=== PATIENT | female | born 1995 | race Caucasian/White ===

== ENCOUNTER 2022-05-24 15:49 | Outpatient (CLI) | payer OTHER, BC, SELFPAY ==
--- NOTE | 2022-05-24 16:00 | CRLHL7_ITS ---
For Patients: As a result of the Century Cures Act, medical imaging exams and procedure reports are released immediately into your electronic medical record. You may view this report before your referring provider. If you have questions, please contact your health care provider. INDICATION: Evaluate anatomy. COMPARISON: 03.31.22, 02.22.22 TECHNIQUE: Real time conley scale imaging of the fetus was performed as well as color Doppler analysis of the umbilical vessels. FINDINGS: Sonographic imaging demonstrates a single living intrauterine gestation. Fetus demonstrates a regular cardiac rate of 150 beats per minute. Fetus has a vertex position. The placenta lies anterior without evidence of placenta previa. Amniotic fluid volume appears normal. Single deepest vertical pocket: 4.9 cm. The cervix is closed and measures 4.1 cm in length. The composite ultrasound gestational age is calculated at 20 weeks 6 days with an estimated sonographic due date of 10/05/2022. The estimated weight is 366 grams which lies at the 56th %. The following biometric measurements were obtained: Biparietal diameter: 5.0 cm/21 weeks 0 days 73rd% Head circumference: 18.5 cm/20 weeks 6 days 60th% Abdominal circumference: 15.3 cm/20 weeks 3 days 46th% Femur length: 3.4 cm/20 weeks 5 days 51st% The HC/AC ratio measures: 1.21 range (1.06-1.25) On anatomic survey, there is a normal appearance of the cerebral ventricles, cavum septi pellucidi, cisterna magna and cerebellum. The nose, lips, and facial profile appear normal. The cervical, thoracic and lumbar spine are well visualized and appear normal. There is a normal four-chamber heart view and the left and right ventricular outflow tracts appear normal. The diaphragm and stomach appear normal. The kidneys and bladder also appear normal. There is a normal three-vessel cord and cord insertion site. The four extremities appear normal. IMPRESSION: Normal OB ultrasound exam with concordance of clinical and sonographic dating. No intrinsic abnormalities noted on anatomic survey. Dictated by Adarsh Arrieta MD @ 05/25/2022 9:47:10 AM ----- ADDENDUM ----- The placenta appears normal. Dictated by Adarsh Arrieta MD @ Jul 01 2022 11:39AM Signed by:?Adarsh Arrieta MD @05/25/2022 9:47:10 AM (Electronic Signature)
== END 2022-05-24 15:50 | disposition home or self-care (01) ==
LOC: US 15:51
PROVIDERS: Visit Provider Physician Assistant
DX: Z34.92 Encounter for supervision of normal pregnancy, unspecified, second trimester (principal); Z3A.20 20 weeks gestation of pregnancy
CPT/HCPCS: 76805

== ENCOUNTER 2022-07-19 17:49 | Outpatient (CLI) | payer OTHER, BC, SELFPAY ==
[2022-07-21 19:15] LABS: Rapid Plasma Reagin (RPR) Non Reactive (Non Reactive)
== END 2022-07-19 17:50 | disposition home or self-care (01) ==
LOC: NFLDREF 18:27
PROVIDERS: Visit Provider Physician Assistant
DX: Z34.93 Encounter for supervision of normal pregnancy, unspecified, third trimester (principal); Z3A.28 28 weeks gestation of pregnancy
CPT/HCPCS: 86592

== ENCOUNTER 2022-07-22 19:07 | Outpatient (CLI) | payer OTHER, BC, SELFPAY ==
[2022-07-22 08:20] LABS: Glucose Fasting Check 83 mg/dl (60-115)
[2022-07-22 12:03] LABS: Glucose 1 Hour Gest 227 mg/dl (70-180)
[2022-07-22 12:04] LABS: Glucose GTT-Gestational 3 Hr 102 mg/dl (70-140)
== END 2022-07-22 19:08 | disposition home or self-care (01) ==
PROVIDERS: Visit Provider Physician Assistant
DX: O24.419 Gestational diabetes mellitus in pregnancy, unspecified control (principal)
CPT/HCPCS: 82951; 82952

== ENCOUNTER 2022-08-16 16:28 | Outpatient (CLI) | payer OTHER, SELFPAY ==
--- NOTE | 2022-08-16 18:00 | CRLHL7_ITS ---
For Patients: As a result of the Century Cures Act, medical imaging exams and procedure reports are released immediately into your electronic medical record. You may view this report before your referring provider. If you have questions, please contact your health care provider. INDICATION: Third trimester scan, evaluate growth. Gestational diabetes COMPARISON: 05/24/22 TECHNIQUE: Real time conley scale imaging of the fetus was performed. FINDINGS: Sonographic imaging demonstrates a single living intrauterine gestation. Fetus demonstrates a regular cardiac rate of 157 beats per minute. Fetus has a vertex position. The placenta lies anteriorly. Amniotic fluid volume appears normal and there is a single deepest vertical pocket: 6.6 cm. The estimated weight is 2137gm which lies at the 64th %. On the prior OB ultrasound exam dated 05/24/22 the estimated weight was at the 56th%. BPD 96th percentile. HC 90th percentile. AC 66th percentile. FL 31st percentile. The HC/AC ratio measures 1.10 range (0.95-1.11). IMPRESSION: Sonographic gestational age 34 weeks 0 days and sonographic due date of 09/27/2022. Sonographic age 11 days ahead of the clinical age. Estimated weight 64th percentile. Abdominal circumference 90th percentile. Dictated by Adarsh Arrieta MD @ 08/17/2022 9:28:12 AM (Electronically Signed) ----- ADDENDUM ----- Correction: : The abdominal circumference measurement is 66th percentile. Dictated by Adarsh Arrieta MD @ Aug 17 2022 11:46AM Signed by:?Adarsh Arrieta MD @08/17/2022 9:28:12 AM (Electronic Signature)
== END 2022-08-16 16:29 | disposition home or self-care (01) ==
LOC: US 16:28
PROVIDERS: Visit Provider Registered Nurse
DX: O24.419 Gestational diabetes mellitus in pregnancy, unspecified control (principal); Z3A.34 34 weeks gestation of pregnancy
CPT/HCPCS: 76816

== ENCOUNTER 2022-09-16 14:46 | Outpatient (CLI) | payer OTHER, SELFPAY ==
[2022-09-17 14:54] LABS: Strep B DNA Probe NEGATIVE (Negative)
[2022-09-17 16:01] LABS: Strep B Pen/Amox Allergy No
== END 2022-09-16 14:47 | disposition home or self-care (01) ==
LOC: NFLDREF 14:47
PROVIDERS: Visit Provider Obstetrics & Gynecology
DX: Z34.93 Encounter for supervision of normal pregnancy, unspecified, third trimester (principal); Z3A.36 36 weeks gestation of pregnancy
CPT/HCPCS: 76816; 87081; 87653

== ENCOUNTER 2022-10-04 15:46 | Outpatient (CLI) | payer OTHER, SELFPAY ==
--- NOTE | 2022-10-04 16:00 | CRLHL7_ITS ---
For Patients: As a result of the Century Cures Act, medical imaging exams and procedure reports are released immediately into your electronic medical record. You may view this report before your referring provider. If you have questions, please contact your health care provider. INDICATION: Check KATHERINE. COMPARISON: OB ultrasound 09/16/2022. TECHNIQUE: Ultrasound OB pelvis limited with real time conley scale imaging and color Doppler analysis. FINDINGS: Sonographic imaging demonstrates a single living intrauterine gestation. The fetus has a regular cardiac rate of 137 beats per minute. The fetus has a cephalic orientation. The placenta lies anteriorly without evidence of placenta previa. Amniotic fluid volume appears normal with single deepest pocket measuring 7.0 cm and the amniotic fluid index measuring 18.4 cm. IMPRESSION: 1. Single living intrauterine gestation in cephalic position with heart rate 137 beats per minute. 2. KATHERINE within normal limits measuring 18.4 cm. Dictated by Evelyne Freeman MD @ 10/04/2022 9:02:33 PM (Electronically Signed)
== END 2022-10-04 15:47 | disposition home or self-care (01) ==
LOC: US 15:47
PROVIDERS: Visit Provider Obstetrics & Gynecology
DX: Z34.93 Encounter for supervision of normal pregnancy, unspecified, third trimester (principal); Z3A.39 39 weeks gestation of pregnancy
CPT/HCPCS: 76815

== ENCOUNTER 2022-10-10 11:06 | Outpatient (CLI) | payer OTHER, SELFPAY ==
[2022-10-10] VITALS (7 sets, daily range): BP systolic 113–135; BP diastolic 74–89; PULSE 90–106
[2022-10-10 11:55] LABS: Appearance Urine Clear (Clear); Bilirubin Urine Negative (Negative); Blood Urine Negative (Negative); Color Urine Yellow (Yellow); Glucose Urine Negative (Negative); Ketones Urine 1+ (Negative); Leukocyte Esterase Urine Trace (Negative); Nitrite Urine Negative (Negative); Protein Urine Negative (Negative); Specific Gravity Urine 1.015 (1.000-1.030); Urobilinogen Urine 0.2 (0.2-1.0)
[2022-10-10 12:03] LABS: Squamous Epithelial Cell Urine Few (None-Few); WBC Urine 0-2 (0-5)
[2022-10-10 12:04] LABS: Bacteria Urine Few
[2022-10-10 12:15] LABS: Hematocrit 36.4 % (33.0-51.0); Hemoglobin* 12.7 gm/dL (12.0-16.0); Mean Corpuscular HGB Conc 35 gm/dL (32-36); Mean Corpuscular Hemoglobin 31 pg (26-34); Mean Corpuscular Volume 88 fL (80-100); Platelet Count* 236 K/uL (140-440); Red Blood Count 4.14 m/uL (4.00-5.20); White Blood Count* 7.94 K/uL (4.50-11.00)
[2022-10-10 12:18] LABS: Slide Review Reflex No
[2022-10-10 12:34] LABS: Alanine Aminotransferase* 15 U/L (4-35); Aspartate Amino Transferase* 36 U/L (12-35); Blood Urea Nitrogen* 11 mg/dL (5-24); Creatinine* 0.5 mg/dL (0.5-1.5); Estimated Glomerular Filt Rate 133 ml/min
[2022-10-10 12:35] LABS: Total Protein Urine 9 mg/dL
--- NOTE | 2022-10-10 14:21 | PC.OBNST ---
NST Note NST Note Start: 10/10/22 11:10 Freq: ONCE Status: Active Protocol: Document 10/10/22 14:18 ELVIS (Rec: 10/10/22 14:19 JRDaisy [id number]) NST Note 1 Para (# of births) 0 EDC 10/08/22 Gestational Age In Weeks & Days 40 Weeks & 2 Days High Risk Factors Diabetes - Gestational Diet Controlled Patient Presented with Complaint(s) of Other Other Complaints Pt here for BP evaluation and labs. Reactive Yes Appropriate for Gestational Age Yes RN Marsha Flores RN Date 10/10/22 Reactive Yes Appropriate for Gestational Age Yes TAMEKA Rossi RN Date 10/10/22 OB NST charge Yes Complete NST Note via Write Note Yes The provider's electronic signature indicates the NST is reactive/appropriate for gestational age. *Note to provider: If an addendum is required, open the patient's chart and click on the note under the Nurse/Allied Health tab.
== END 2022-10-10 13:18 | disposition home or self-care (01) ==
LOC: OB OUT 11:08 → OB 11:08
PROVIDERS: Obstetrics & Gynecology; Visit Provider Obstetrics & Gynecology
DX: O24.419 Gestational diabetes mellitus in pregnancy, unspecified control (principal); Z3A.40 40 weeks gestation of pregnancy
CPT/HCPCS: 36415; 59025; 81003; 81015; 82565; 82570; 84156; 84450; 84460; 84520; 85027; 87086; 87186; 99213

== ENCOUNTER 2022-10-11 09:29 | Outpatient (CLI) | payer OTHER, SELFPAY ==
[2022-10-11 09:21] LABS: Alanine Aminotransferase* 14 U/L (4-35); Aspartate Amino Transferase* 17 U/L (12-35); Blood Urea Nitrogen* 12 mg/dL (5-24); Creatinine* 0.6 mg/dL (0.5-1.5); Estimated Glomerular Filt Rate 127 ml/min; Total Protein Urine 12 mg/dL
[2022-10-11 09:22] LABS: Creatinine Urine 95.2 mg/dL
== END 2022-10-11 09:30 | disposition home or self-care (01) ==
LOC: NFLDLAB 10-14 09:30
PROVIDERS: Obstetrics & Gynecology; Visit Provider Obstetrics & Gynecology
DX: Z34.93 Encounter for supervision of normal pregnancy, unspecified, third trimester (principal); Z3A.40 40 weeks gestation of pregnancy
CPT/HCPCS: 82565; 82570; 84156; 84450; 84460; 84520

== ENCOUNTER 2022-10-13 16:31 | Inpatient (IN) | payer OTHER, SELFPAY ==
[2022-10-13 16:35] VITALS: BP 122/81; PULSE 86; TEMP 36.9
[2022-10-13 16:45] VITALS: BMI 34.4
--- NOTE | 2022-10-13 16:59 | W.PM.LDBA ---
Subjective History of Present Illness Time Seen by Provider: 17:00 Date Seen: 10/13/22 Narrative: Patient is being admitted to Labor and Delivery for cervical ripening and induction of labor secondary to GDMA1. She is a 27 year old at weeks gestation. Her full history and physical was dictated by Dr. Childers on 10/04/2022. Please see this for details. OB PROBLEM LIST: Blood type: O positive 1. 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 COVID vaccinated +booster 4. Possible placental accessory lobe Normal placenta on FAS, no accessory lobe. 5. 1 hour GTT: 182 Discussed making the diagnosis now, patient preferred to do a 3 hour gtt 3 hour gtt: 89, 227H, 225H, 102 GESTATIONAL DIABETES, diet controlled Dietitian referral placed 07/22/2022:completed 08/02/22: Blood sugars all normal Ultrasound 32 and 36 week -32 week: EFW 64%. BPD 96%, HC 90%, AC 66%, FL 30.5% 36 week 09/16/22: New onset R renal pelviectasis, 8 mm. ? L renal atrophy. [facility] of [facility] MFM referral. Vtx. SDP 6.5. EFW: 3213 g, 7 lb 1 oz, 72%. BPD 96%, HC 73%, AC 57%, FL 75%. 09/19/2022 U of [place] MFM: normal kidneys bilaterally, no pelviectesis. EFW: 3019g, #11oz 43%. OB - H&P: Exam Physical Exam: Vital signs: Temp Pulse BP 98.4 F 86 122/81 10/13/22 16:35 10/13/22 16:35 10/13/22 16:35 Constitutional: Constitutional: no acute distress Routine HEENT Exam: Head: Present normal inspection Eye: Present normal appearance Routine Abdominal Exam: Comments: gravid, fundal height consistent with dates, vertex presentation by Donato'michelle Detailed Labor and Delivery Exam: Patient Gravid: yes Dilation (cm): 1 Effacement (%): 50 Cervix position: posterior Consistency: medium Contraction frequency (min): 10 Contraction intensity: Mild Fetus (Single): Station: -3 (ballotable) Heart Rate Baseline: 130 Monitor Accelerations: Present Monitor Decelerations: None Retirement Variability: Moderate (6-25) Routine Extremities Exam: Extremities: Absent pedal edema Routine Back/Spine/Pelvis Exam: Back/Spine: full ROM Routine Skin Exam: Present intact Routine Neurological Exam: Present alert and oriented X3 Routine Psychiatric Exam: Present normal affect OB - Problem Based A/P Additional Plan (1) : Status: Acute (2) Gestational diabetes mellitus (GDM): Status: Acute Delivery/Labor/Induction Plan Plan: induction Induction method: per misoprostol protocol (vaginal for cervical ripening)
[2022-10-13] MEDS: miSOPROStoL 25 MCG/0.25 TABLET VAGINAL ×2 (17:33→21:44)
[2022-10-13 17:51] LABS: SARS PCR* Negative SARS-CoV-2 (Negative)
[2022-10-13 18:43] LABS: Basophils Absolute Auto 0.03 K/uL (0.00-0.30); Basophils Percent Auto 0.3 % (0.0-3.0); Eosinophils Percent Auto 1.2 % (0.0-7.0); Hematocrit 37.6 % (33.0-51.0); Immature Granulocytes Abs Auto 0.01 K/uL (0.00-0.30); Immature Granulocytes Pct Auto 0.1 %; Lymphocytes Absolute Auto 2.04 K/uL (0.90-2.90); Lymphocytes Percent Auto 23.6 % (20-44); Mean Corpuscular HGB Conc 35 gm/dL (32-36); Mean Corpuscular Hemoglobin 31 pg (26-34); Mean Corpuscular Volume 89 fL (80-100); Monocytes Percent Auto 5.9 % (0.0-11.0); Neutrophils Absolute Auto 5.96 K/uL (1.7-7.0); Neutrophils Percent Auto 68.9 % (42.0-72.0); Platelet Count* 231 K/uL (140-440); RDW Coefficient of Variation % 12.6 % (11.5-15.5); Red Blood Count 4.25 m/uL (4.00-5.20); White Blood Count* 8.65 K/uL (4.50-11.00)
[2022-10-13 18:57] LABS: Slide Review Reflex No
[2022-10-13 21:25] VITALS: BP 126/88; PULSE 77
[2022-10-13 21:30] VITALS: RESP 16; TEMP 36.4
[2022-10-14] VITALS (58 sets, daily range): BP systolic 99–171; BP diastolic 61–94; PULSE 57–110; RESP 16–185; TEMP 36.5–37.1; O2SAT 96–100
[2022-10-14] MEDS: miSOPROStoL 25 MCG/0.25 TABLET VAGINAL ×2 (01:36→05:41)
[2022-10-14] MEDS: hydrOXYzine pamoate 25 MG CAPSULE 100 MG PO (01:52)
[2022-10-14] MEDS: MORPHINE 10 MG/ML inj IM (01:53)
[2022-10-14] MEDS: ONDANSETRON 2 MG/ML inj 4 MG IV (08:26)
--- NOTE | 2022-10-14 10:03 | P.OBPN_ITS ---
Subjective Time Seen by Provider: 09:15 Date Seen: 10/14/22 Narrative: Peggy has received 4 doses of misoprostol for cervical ripening. She is starting to feel stronger contractions, and is currently working through contractions on all fours. Objective Vital Signs: Last Vital Signs Temp 98.7 F 10/14/22 09:29 Pulse 78 10/14/22 09:30 Resp 18 10/14/22 09:29 BP 124/90 H 10/14/22 09:30 Comments: HELLP labs all normal yesterday, protein:creatinine 0.10 on 10/11. Pelvic Exam Dilation (cm): 3 Effacement (%): 90 Station: 0. Comments: Anterior, soft. AROM for clear fluid Contractions Contraction Frequency: not registering well on toco Assessment Assessment: early labor Amniotic Membrane Status: AROM Status: Category l Heart Rate Baseline: 130 Long-Term Variability: Moderate (6-25) Monitor Accelerations: Present Monitor Decelerations: None Tracing Comments: Baseline 130 / accels present / no decels / moderate variability. Reassuring status GBS negative Labor Progress: Good progress after cervical ripening Maternal Status: Gestational HTN, no severe features. GDMA1, with sugars all normal or low since admission Plan Plan: Begin pitocin augmentation Epidural as desired Continuous monitoring Continue FS per protocol Will repeat HELLP labs with persistently elevated BP
[2022-10-14] MEDS: LACTATED RINGERS 1000 ML 1,000 ML 900 ML IV (10:25)
[2022-10-14] MEDS: fentaNYL 250 MCG/5 ML inj 100 MCG EPIDURAL (11:00)
[2022-10-14] MEDS: LIDOCAINE 2% (PF) 5 ML VIAL EPIDURAL (11:07)
[2022-10-14] MEDS: ROPIVACAINE 0.2% 100 ml 100 ML 12 MG EPIDURAL (11:08)
--- NOTE | 2022-10-14 11:25 | PM.ANBPRC ---
[facility] Medical History (Updated 10/12/22 @ 09:28 by Enid Childers MD) Gestational diabetes mellitus (GDM) Renal abnormality of fetus on ultrasound Surgical History (Updated 10/04/22 @ 15:34 by Enid Childers MD) H/O myringotomy Family History (Updated 10/04/22 @ 15:35 by Enid Childers MD) Father Thyroid disease Paternal Grandmother Thyroid disease Mother High blood pressure Social History (Updated 10/04/22 @ 15:36 by Enid Childers MD) Narrative: Lives in [place] with . Works at [employer] as [employer]. No smoking, ETOH, or recreational drug use. Smoking Status: Never smoker Meds Home Medications and Allergies Home Medications Medication Instructions Recorded Confirmed Type aspirin 81 mg tablet,delayed 81 mg PO DAILY 05/24/22 10/13/22 History release prenat.vits,jessie,qts-thuc-odtqt 1 tab PO QDAY 05/24/22 10/13/22 History Allergies Allergy/AdvReac Type Severity Reaction Status Date / Time No Known Allergies Allergy Verified 10/11/22 09:01 Results Labs Labs: Laboratory Results - last 24 hr 10/11/22 10/11/22 10/13/22 08:40 08:40 16:42 WBC RBC Hgb Hct MCV MCH MCHC RDW Coeff of Camilla Plt Count Neut % (Auto) Lymph % (Auto) [place] % (Auto) Eos % (Auto) Baso % (Auto) Neut # (Auto) Lymph # (Auto) [place] # (Auto) Eos # (Auto) Baso # (Auto) Abs Immat Gran (auto) Imm/Tot Granulo (auto) BUN Cancelled Creatinine Cancelled Estimated Creat Clear Cancelled Estimated GFR Cancelled AST Cancelled ALT Cancelled Urine Creatinine Cancelled Protein/Creatinin Ratio Cancelled Urine Total Protein Cancelled SARS-CoV-2 (PCR) Negative SARS-CoV-2 Blood Type Antibody Screen 10/13/22 10/13/22 18:36 18:36 WBC 8.65 RBC 4.25 Hgb 13.0 Hct 37.6 MCV 89 MCH 31 MCHC 35 RDW Coeff of Camilla 12.6 Plt Count 231 Neut % (Auto) 68.9 Lymph % (Auto) 23.6 [place] % (Auto) 5.9 Eos % (Auto) 1.2 Baso % (Auto) 0.3 Neut # (Auto) 5.96 Lymph # (Auto) 2.04 [place] # (Auto) 0.50 Eos # (Auto) 0.10 Baso # (Auto) 0.03 Abs Immat Gran (auto) 0.01 Imm/Tot Granulo (auto) 0.1 BUN Creatinine Estimated Creat Clear Estimated GFR AST ALT Urine Creatinine Protein/Creatinin Ratio Urine Total Protein SARS-CoV-2 (PCR) Blood Type O Positive Antibody Screen NEGATIVE Vital Signs Vital Signs: Last Vital Signs Temp 98.2 F 10/14/22 10:39 Pulse 79 10/14/22 11:24 Resp 18 10/14/22 10:39 BP 110/72 10/14/22 11:24 Pulse Ox 98 10/14/22 11:14 Weight: 90.855 kg Height: 162.56 cm Anesthesia Procedures Epidural Insertion Patient Location: OB Start Time: 10:45 Stop Time: 11:45 Start Date: 10/14/22 Stop Date: 10/14/22 Reason for Block: primary anesthetic Patient Position: sitting Performed By: Taz Laws Preanesthetic Checklist: IV checked, risks and benefits discussed, surgical consent, monitors and equipment checked, pre-op evaluation, timeout performed and anesthesia consent Prep: chlorhexidine gluconate Monitoring: blood pressure monitoring, cardiac exercise specialist, continuous pulse oximetry and heart rate Approach: midline Vertebral Space: lumbar (1-5) Needle Type: Tuohy needle Injection Technique: continuous catheter Needle gauge: 17 Needle Length (cm): 10 cm Needle Insertion Depth (cm): 6 Catheter Gauge: 19 Catheter Type: multi-orifice Catheter at skin depth (cm): 12 Test Dose Result: negative and lidocaine 1.5% with epinephrine 1 to 200,000 Events: other
[2022-10-14] MEDS: 5 % DEXTROSE/0.9% SOD CHLORIDE 1,000 ML 125 ML IV (13:08)
[2022-10-14] MEDS: OXYTOCIN 30 unit/500 ML in NS 30 UNIT/500 ML BAG IVPB (13:39)
--- NOTE | 2022-10-14 14:09 | PM.OBPNL ---
Subjective Time Seen by Provider: 12:40 Date Seen: 10/14/22 Narrative: Since my last exam, Peggy has had epidural and is no longer feeling contractions. Objective Vital Signs: Last Vital Signs Temp 97.8 F 10/14/22 11:34 Pulse 69 10/14/22 13:56 Resp 16 10/14/22 11:34 BP 129/86 10/14/22 13:56 Pulse Ox 98 10/14/22 11:14 Pelvic Exam Dilation (cm): 4 Effacement (%): 90 Station: 0. Comments: Anterior, soft. IUPC placed in aseptic fashion Contractions Contraction Frequency: not registering well on toco Assessment Assessment: early labor Station: 0 (ballotable) Amniotic Membrane Status: AROM Status: Category ll Heart Rate Baseline: 130 Shelter Variability: Moderate (6-25) Monitor Accelerations: Present Monitor Decelerations: Variable Tracing Comments: Baseline 130 / accels present / intermittent variable decels / moderate variability. Overall reassuring status GBS negative Labor Progress: Continuing progress in early labor Maternal Status: Gestational HTN, no severe features. GDMA1, with sugars all normal or low since admission Plan Plan: Begin pitocin augmentation when tracing allowed. Follow MVUs Continuous monitoring Continue FS per protocol
--- NOTE | 2022-10-14 14:13 | P.OBPN_ITS ---
Subjective Time Seen by Provider: 14:00 Date Seen: 10/14/22 Narrative: I was called to bedside to evaluate heavy bloody show. Patient had cervical exam per RN followed by heavier than anticipated vaginal bleeding. Peggy is feeling no contractions. Pitocin was on for 15 min before decelerations were noted. Objective Vital Signs: Last Vital Signs Temp 97.8 F 10/14/22 11:34 Pulse 60 10/14/22 14:11 Resp 16 10/14/22 11:34 BP 130/84 10/14/22 14:11 Pulse Ox 98 10/14/22 11:14 Pelvic Exam Dilation (cm): 5 Effacement (%): 95 Station: 0. Comments: per Lise Hoyt RN. Approx 15 cc of blood on pad Contractions Contraction Frequency: approximately Q 3 with IUPC Contraction pattern: Regular Assessment Assessment: early labor Station: 0 (ballotable) Amniotic Membrane Status: AROM Status: Category ll Heart Rate Baseline: 120 Director Of Safety And Security Variability: Moderate (6-25) Monitor Accelerations: Present Monitor Decelerations: Variable (In last 30 min, intermittent variables. One was 1.5 min, another 2 min, both with colin in 90s) Tracing Comments: Category 2 tracing, overall reasurring. GBS negative Labor Progress: Progressing through latent labor Maternal Status: Increased bleeding with exam, overall amount not concerning at this time. Gestational HTN, no severe features GDM A1, normal intrapartum sugars Plan Plan: Continuous monitoring. Pitocin if/when status allows. Repeat exam 2 hours or sooner depending on clinical status. CBC, fibrogen, assure that there is active T&S. If there is any further concern regarding bleeding, will type and cross 2 units. At this moment appears to be within normal ranges. Repeat HELLP labs with any severe elevation of BP. Continue FS per protocol.
[2022-10-14 14:43] LABS: Hematocrit 34.5 % (33.0-51.0); Hemoglobin* 12.1 gm/dL (12.0-16.0); Mean Corpuscular HGB Conc 35 gm/dL (32-36); Mean Corpuscular Hemoglobin 31 pg (26-34); Mean Corpuscular Volume 89 fL (80-100); Platelet Count* 201 K/uL (140-440); Red Blood Count 3.89 m/uL (4.00-5.20); White Blood Count* 9.53 K/uL (4.50-11.00)
[2022-10-14] MEDS: PHENYLEPHRINE 100 MCG/ML SYRINGE IVP (14:43)
[2022-10-14 14:46] LABS: Slide Review Reflex No
[2022-10-14 15:06] LABS: Fibrinogen* 424 mg/dL (200-450)
[2022-10-14] MEDS: LIDOCAINE 1% MDV 20 ML INJECTION (17:21)
--- NOTE | 2022-10-14 17:34 | PM.OBPRCVD ---
Procedure Delivery date: 10/14/22 Procedure Done: [employer] Procedure Details: The patient is a 27 year-old G 1 P woman admitted on 10/13/2022 at 40 Weeks, 5 Days gestation for cervical ripening prior to induction of labor.? Her was notable for GDM A1 and a recently elevated blood pressure in clinic. Cervical exam at time of presentation was 1 cm, 50% effaced,-3 station. She had 4 doses of 25 mcg of vaginal misoprostol for cervical ripening. AROM occurred at 9:18 a.m. on 10/14/2022 with clear fluid. ? Labor Analgesia:? Epidural ? Pitocin:? Yes, never higher than 1 milliunit / minute ? Labor onset:? Around the time of AROM ? Complete:? 4:09 p.m. on 10/14/2022 ? Pushing:? 4:42 p.m. ? heart tones during second stage were notable for intermittent deep variable decelerations with contractions. ? At 5:05 p.m. a viable female delivered in vertex ZELALEM presentation over second-degree perineal laceration via spontaneous vaginal delivery.? Infant was placed on maternal abdomen.? Cord was clamped and cut after a 60 second delay.? Nose and mouth were bulb suctioned.? weight pending.? 7 at 1 minute and 8 at 5 minutes.? Shoulder dystocia: No.? Nuchal cord: X2, reduced prior to delivery of infant body. ? Placenta delivered spontaneously and complete at 5:07 p.m. with a 3 vessel cord. ? Mother and infant were stable after delivery. ? Lacerations:? Second-degree perineal, repaired with 2 0 Vicryl in the usual fashion after infiltration with 10 mL of 1% lidocaine. ? Blood loss: 360 mL. Blood loss measurement type: QBL ? Sponge and needles counts are correct.
[2022-10-14] MEDS: AMOXICILLIN 875 MG TABLET PO (18:59)
[2022-10-14] MEDS: IBUPROFEN 600 MG TABLET PO (21:28)
[2022-10-15] MEDS: ACETAMINOPHEN 500 MG TABLET 1000 MG PO ×3 (01:41→17:17)
[2022-10-15] MEDS: IBUPROFEN 600 MG TABLET PO ×3 (04:11→23:27)
[2022-10-15 04:29] VITALS: BP 129/80; PULSE 72; RESP 16; TEMP 36.6; O2SAT 96
[2022-10-15] MEDS: AMOXICILLIN 875 MG TABLET PO ×2 (06:38→19:39)
[2022-10-15 07:19] VITALS: BP 122/86; PULSE 70; RESP 16; TEMP 36.5; O2SAT 97
[2022-10-15 07:41] LABS: Hemoglobin* 10.9 gm/dL (12.0-16.0); Mean Corpuscular HGB Conc 35 gm/dL (32-36); Mean Corpuscular Hemoglobin 31 pg (26-34); Mean Corpuscular Volume 89 fL (80-100); Platelet Count* 181 K/uL (140-440); Red Blood Count 3.49 m/uL (4.00-5.20); White Blood Count* 9.26 K/uL (4.50-11.00)
[2022-10-15 07:45] LABS: Slide Review Reflex No
[2022-10-15 07:52] LABS: Alanine Aminotransferase* 15 U/L (4-35); Aspartate Amino Transferase* 29 U/L (12-35); Blood Urea Nitrogen* 10 mg/dL (5-24); Creatinine* 0.6 mg/dL (0.5-1.5); Estimated Glomerular Filt Rate 127 ml/min
[2022-10-15 08:03] LABS: INR 0.95 (0.91-1.10); Prothrombin Time 13.3 Seconds
[2022-10-15 08:04] LABS: Fibrinogen* 364 mg/dL (200-450)
--- NOTE | 2022-10-15 08:43 | PM.OBPNVD1 ---
OB - PN:Subj Subjective Time Seen by Provider: 08:44 Date Seen: 10/15/22 Narrative: HPI: The patient is ppd #1 from an uncomplicated vaginal delivery. She feels well but tired. She is breast feeding with difficulty some difficulty with latch. She states her pain is Well with current pain medication. She is passing flatus. Ambulating without difficulty. Tolerating a regular diet. Urine output is adequate. She is urinating without difficulty. Lochia: minimal.. Her blood pressures have been 120s- 130s/ 70s-80s since delivery. She underwent induction for gestational hypertension at 40 weeks 5 days gestation. Objective: General: No acute distress. Vital signs: See the patient's electronic medical record. Psychiatric: Alert and oriented x3. Appropriate affect. Heart: Regular rate and rhythm without gallop, rub or murmur. Chest: Clear to auscultation bilaterally. Abdomen: Soft, nontender and nondistended with normal bowel sounds throughout. Fundus is firm at 1cm below the umbilicus in the midline. Fundus is nontender to palpation. Perineum: Mild edema with well-healed 2nd degree laceration. Extremities: No edema or pain. Assessment/Plan: day 1 from an uncomplicated vaginal delivery. hemoglobin: 10.9. Continue and see if she desires. Planning discharge home tomorrow. OB - PN: Obj Exam Physical Exam: Vital signs: Temp Pulse Resp BP Pulse Ox O2 Del Method 97.7 F 70 16 122/86 97 10/15/22 07:19 10/15/22 07:19 10/15/22 07:19 10/15/22 07:19 10/15/22 07:19 10/15/22 07:19 OB - PN: Obj Data Labs Labs: Laboratory Results - last 24 hr 10/11/22 10/11/22 10/14/22 08:40 08:40 14:32 WBC 9.53 RBC 3.89 L Hgb 12.1 Hct 34.5 MCV 89 MCH 31 MCHC 35 Plt Count 201 INR Fibrinogen BUN Cancelled Creatinine Cancelled Estimated Creat Clear Cancelled Estimated GFR Cancelled AST Cancelled ALT Cancelled Urine Creatinine Cancelled Protein/Creatinin Ratio Cancelled Urine Total Protein Cancelled 10/14/22 10/15/22 10/15/22 14:32 07:29 07:29 WBC 9.26 RBC 3.49 L Hgb 10.9 L Hct 31.0 L MCV 89 MCH 31 MCHC 35 Plt Count 181 INR Fibrinogen 424 BUN 10 Creatinine 0.6 Estimated Creat Clear 122.70 Estimated GFR 127 AST 29 ALT 15 Urine Creatinine Protein/Creatinin Ratio Urine Total Protein 10/15/22 07:29 WBC RBC Hgb Hct MCV MCH MCHC Plt Count INR 0.95 Fibrinogen 364 BUN Creatinine Estimated Creat Clear Estimated GFR AST ALT Urine Creatinine Protein/Creatinin Ratio Urine Total Protein OB - PN: A/P Vaginal Delivery Assessment and Plan (1) : Status: Resolved (2) Gestational diabetes mellitus (GDM): Status: Resolved
[2022-10-15 11:31] VITALS: BP 126/83; PULSE 83; RESP 16; TEMP 36.6; O2SAT 96
[2022-10-15] MEDS: DOCUSATE SODIUM 100 MG CAPSULE PO (14:44)
[2022-10-15 17:09] VITALS: BP 120/81; PULSE 83; RESP 16; TEMP 36.4; O2SAT 97
[2022-10-15 17:17] VITALS: TEMP 36.4
[2022-10-15 23:29] VITALS: BP 134/87; PULSE 73; RESP 14; TEMP 36.4; O2SAT 98
[2022-10-16] MEDS: AMOXICILLIN 875 MG TABLET PO (07:30)
--- NOTE | 2022-10-16 10:21 | PM.OBDSVD1 ---
DS: Providers Provider Time Seen by Provider: 10:21 Date Seen: 10/16/22 Date of admission: 10/13/22 16:31 Primary care physician: Not a Local Provider Admitting Clinician: Adrianna Lama MD Attending Physician on discharge: Adrianna Lama MD DS: Diagnosis Discharge Diagnosis (1) Lactating mother: Status: Acute (2) Gestational hypertension without significant proteinuria: Status: Acute (3) Normal spontaneous vaginal delivery: Status: Acute (4) History of gestational diabetes: Status: Acute Exam Const: Vital Signs, click to edit/add: Vital Signs - 24 hr 10/15/22 11:31 10/15/22 17:09 10/15/22 17:17 Temperature 97.8 F 97.5 F L 97.5 F L Pulse Rate [Pulse Oximeter] 83 83 Respiratory Rate 16 16 Blood Pressure [Le ft Arm] 126/83 120/81 Pulse Oximetry 96 97 Oxygen Delivery Me thod Room Air Room Air 10/15/22 23:29 Temperature 97.6 F Pulse Rate [Pulse Oximeter] 73 Respiratory Rate 14 Blood Pressure [Le ft Arm] 134/87 Pulse Oximetry 98 Oxygen Delivery Me thod Room Air OB - DS: Summary Hospital Course Hospital Course: See below Peripartum Data Procedures: HOSPITAL COURSE: Peggy is a 27 year old, G 1 now P 1 admitted on 10/13/2022 at 40 Weeks, 5 Days gestation for induction of labor for gestational hypertension and diet-controlled gestational diabetes. She had an uncomplicated vaginal delivery. She delivered a viable female infant, Viri. She is breast feeding. the patient has done well. Vitals have been stable. She has remained afebrile. Vital Signs: See EMR. Her blood pressure has been 120s-130s/70s-80s . Discharge Examination GENERAL APPEARANCE: normal affect, alert, no distress MOOD: appropriate CHEST: clear to auscultation and percussion HEART: regular rate and rhythm ABDOMEN: soft, non-tender the uterine fundus is 1 cm Below Umbilicus, Midline and is appropriate for the stage of recovery. PERINEUM: mild edema of the perineum, there is a Periurethral Laceration 2nd degree that is healing well. EXTREMITIES: normal and minimal edema Discharge Criteria patient is ambulating without assistance, urinating without difficulty, tolerating a regular diet without n/v, and with [adequate pain control] with po medications. She is normotensive. Disposition: Home/Self Care She is requesting discharge home. [facility] Gender: Female Time Spent with Patient Time attestation: Total time spent providing and/or coordinating discharge services: Discharge Plan Discharge Disposition: Home, Self-Care Date of Admission: 10/13/22 16:31 Attending Provider on Discharge: Laura Tijerina Primary Care Provider: Provider,Not a Local Condition: Stable Anticipated Discharge Date/Time: 10/16/22 12:00 Discharge Medications: New docusate sodium 100 mg Capsule 100 mg PO BID PRN (Reason: constipation) Qty: 100 0RF ibuprofen 600 mg Tablet 600 mg PO Q6H PRNQty: 30 0RF Continued prenat.vits,jessie,yos-ssed-thtdb Tablet 1 tab PO QDAY Discontinued aspirin 81 mg tablet,delayed release (DR/EC) 81 mg PO DAILY amoxicillin 875 mg tablet 875 mg PO BID 5 Days Qty: 10 0RF No Action (DME) lancets Misc See Rx Instructions .MEDSUPPLY Qty: 100 3RF Rx Instructions: Test blood sugar 4 times daily, every AM and 2 hours after meals (DME) Test Strips Misc See Rx Instructions .MEDSUPPLY Qty: 100 3RF Rx Instructions: Test blood sugar 4 times daily, every am and 2 hours after meals (DME) Blood Glucose Meter Misc See Rx Instructions .MEDSUPPLY Qty: 1 0RF Rx Instructions: As directed Discharge Orders: Discharge Order (Routine); Ordered 10/16/22 Ordered By: Laura Tijerina Patient Education: Vaginal Delivery (DC) Additional Instructions: Discharge instructions were reviewed with the patient including signs and symptoms of infection and home going medications. ACTIVITY RESTRICTIONS: No exercise or lifting restriction. Only restriction is: Nothing vaginally for 6 weeks , no tampons or intercourse. Off Work or School for a minimum of 6 weeks. Symptoms to report to doctor: -Bleeding that saturates more than one pad per hour ?-Passing clots larger than the size of a golf ball ?-Pain not relieved by prescribed medication ?-Fever above 100.4 degrees Fahrenheit ?-A foul vaginal odor ?-Difficulty in emotions, mood and functions ?-Thoughts of hurting yourself and/or ?-Painful, reddened area in your breast ?-Any drainage, redness or tenderness in your IV/epidural site ?-Severe headache that doesn't improve after taking medications ?-Changes in vision, including temporary loss of vision, blurred vision, and/or light sensitivity ?-Upper abdominal pain (usually under ribs on the right side) ?-Decrease in urination or painful, frequent urinating ?-Chest pain ?-Shortness of breath ?-Tenderness or pain with redness and/swelling in the calf(s) of your leg FOLLOW-UP APPOINTMENTS: With a [facility] provider 1. Optional 2 week visit: Answer care questions, review contraceptive options, screen for anxiety and depression. 2. 6 week visit for an annual exam. consultation services are available to all mothers and babies for the first year after delivery.? To make an appointment, please call [phone]. Discharge Diet: Regular Follow Up Appointments: [facility] [Provider Group] Provider,Not a Local [Primary Care Provider] - Forms: [facility] Info Instructions
== END 2022-10-16 11:13 | disposition home or self-care (01) | DRG 807 ==
LOC: OB 21:34
PROVIDERS: Obstetrics & Gynecology; Admitting Provider Obstetrics & Gynecology; Visit Provider Obstetrics & Gynecology
DX: O24.420 Gestational diabetes mellitus in childbirth, diet controlled (principal); Z37.0 Single live birth; O13.4 Gestational [pregnancy-induced] hypertension without significant proteinuria, complicating childbirth; O76 Abnormality in fetal heart rate and rhythm complicating labor and delivery; O70.1 Second degree perineal laceration during delivery; Z3A.40 40 weeks gestation of pregnancy
CPT/HCPCS: 01967; 36415; 59200; 82565; 82570; 82962; 84156; 84450; 84460; 84520; 85025; 85027; 85384; 85610; 86850; 86900; 86901; 87635; A9270; J2270; J2370; J2405; J2795; J3010; J7042; J7120

== ENCOUNTER 2022-10-19 12:48 | Outpatient (CLI) | payer OTHER, SELFPAY ==
--- NOTE | 2022-10-19 18:05 | W.PM.LAC.MC ---
Consult Note - Mom Date of Visit Date of visit: 10/19/22 managed security sales consultant: Franci Valadez Visit Code: Visit Patient's Information Phone number: [phone] : 1 Para: 1 Allergies No Known Allergies Allergy (Verified 10/11/22 09:01) Mother's Medical History: Medical History (Updated 10/18/22 @ 00:01 by ) Gestational diabetes mellitus (GDM) Gestational hypertension without significant proteinuria Delivery Information Delivery type: Vaginal Weeks Gestation: 40.5 Gestational Age: AGA Weight: 3.317 kg Discharge Weight: 3.16 kg Baby's Information Baby's Age at Visit: 5 days Baby's Provider or Clinic: Dr. Rice Jaundice: Yes (to MARCY WHALEY on 10/18 = 14.3) Reason for Consult Reason for Consult: difficulty latching since D/C Past Experience Past Experience: No Current Frequency of Day Feedings: about every 3 hours around the clock Both Breasts: No (baby hasn't latched since D/C on 10/16) Pumping Pumping: Yes (mom tries to pump every three hours) Quantity Pumped: .5 - 1 oz Supplementing EMB Supplement: Yes (baby is given about 20 ml EBM or formula every three hours) Formula Supplement: Yes Baby Elimination Number of Wet Diapers a Day: 5 - 6 Number of BM a Day: 1 since PCP visit on 10/18 Breast/Nipple Condition Breast Information: WNL Engorgement: No Maternal Nipple Condition - Left: Short Maternal Nipple Condition - Right: Short Sore Nipples: No Onsite Pre-Feed weight: 3.09 kg Post-Feed weight: 3.102 kg Milk Transferred (mL): 12 Pre-Nursing Left Nipple: Within Normal Limits Pre-Nursing Right Nipple: Within Normal Limits Post-Nursing Left Nipple: Within Normal Limits Post-Nursing Right Nipple: Within Normal Limits Assessments/Interventions Assessments/Interventions: Met with mom and this now 5 day old ex- term AGA baby for consult.? POC called on 10/17 stating baby hadn't really nursed since D/C on 10/16.? Durig that phone call they were instructed to continue offering the breast every 2 - 3 hours but if baby was still having trouble, mom should pump while dad supplemented (see phone encounter).? Baby was seen for her NB visit on 10/18.? Mom reports baby is taking about 20 ml EBM or formula every three hours as she's still not latching.? Mom attempts to pump every three hours and gets between .5 - 1 oz. Breasts WNL- symmetrical with rounded lower quadrants, intramammary distance < 1.5 inches.? Left nipple is everted while the right is a little flat; both are short.? No damage noted. Baby has gained 57 grams since her visit on 10/18 and is now 7% below BW at 5 DOL (up from 9%).? POC report she favors looking to her right but has equal ROM when moving her extremities.? They deny any caput or cephalohematoma but do state it was a very quick labor.? Her palate may be a little high.? Her upper frenulum is WNL, her lower frenulum may be a little posterior.? She doesn't consistently extend her tongue over the gum line when sucking on a finger but the tongue has good lateral movement. Mom attempted to latch baby to the left side in the football hold without a shield but was unsuccessful.? After a few attempts with a nipple shield, baby was able to latch and per mom it feels like the pump.? Baby nursed for about 10 minutes needing very little stimulation.? Mom offered the right side with the nipple shield and although this side was more difficult after several attempts baby latched and nursed another 10 minutes (helped to switch from football to cross cradle hold).? There was milk in the shield from both when baby came off.? She transferred 12 ml. Plan: 1. Mom to practice nursing with the nipple shield every 2 - 3 hours; offering both sides.? Reviewed the importance of seeing milk in the shield once she had finished.? If she or baby get frustrated, it's ok to stop and try at the next feeding. 2. Encouraged mom to continue pumping after every feeding in the daytime to build and protect her supply; pump was briefly reviewed.? This frequency can be re-evaluated at baby's next visit around 10/27.? 3. Instructed POC to continue supplementing with .5 - 1 oz EBM or formula after every feeding (reviewed signs POC need to increase or decrease this amount).? This can also be re-evaluated at baby's WCC. 4. Discussed tongue exercises to help baby extend her tongue over the gumline more consistently (handout given) and career guidance technician (POC are taking her on 10/22). 4. F/U for a 2 week WCC late next week and in on 11/04 to see about weaning from the nipple shield. Meds Home Medications and Allergies Home Medications Medication Instructions Recorded Confirmed Type prenat.vits,jessie,cmq-ykwa-ojiav 1 tab PO QDAY 05/24/22 10/13/22 History Allergies Allergy/AdvReac Type Severity Reaction Status Date / Time No Known Allergies Allergy Verified 10/11/22 09:01
== END 2022-10-19 12:49 | disposition home or self-care (01) ==
LOC: OB LAC 12:49
PROVIDERS: Visit Provider Physician Assistant
DX: Z39.1 Encounter for care and examination of lactating mother (principal)
CPT/HCPCS: 99211

== ENCOUNTER 2022-12-12 11:18 | Outpatient (CLI) | payer OTHER, SELFPAY ==
[2022-12-12 09:34] LABS: Glucose Fasting Check 84 mg/dl (60-115)
[2022-12-12 13:37] LABS: Glucose 2 Hour 89 mg/dl (70-155)
[2022-12-12 13:37] LABS: Glucose Fasting 82 mg/dl (70-95)
== END 2022-12-12 11:19 | disposition home or self-care (01) ==
PROVIDERS: Visit Provider Obstetrics & Gynecology
DX: O24.419 Gestational diabetes mellitus in pregnancy, unspecified control (principal)
CPT/HCPCS: 82947; 82950

== ENCOUNTER 2024-06-11 09:57 | Outpatient (CLI) | payer OTHER, SELFPAY | END 2024-06-11 09:58 | disposition home or self-care (01) | LOC: NFLDREF 06-12 10:43 | PROVIDERS: Visit Provider Physician Assistant | DX: N92.6 Irregular menstruation, unspecified (principal); Z13.6 Encounter for screening for cardiovascular disorders; Z13.1 Encounter for screening for diabetes mellitus | CPT/HCPCS: 80061; 82947; 84443 ==

== ENCOUNTER 2024-11-25 16:27 | Outpatient (CLI) | payer OTHER, SELFPAY ==
--- NOTE | 2024-11-25 16:45 | CRLHL7_ITS ---
For Patients: As a result of the Century Cures Act, medical imaging exams and procedure reports are released immediately into your electronic medical record. You may view this report before your referring provider. If you have questions, please contact your health care provider. OBSTETRICAL ULTRASOUND INDICATION: Ultrasound for dates and viability. LMP: 09/23/2024 [place] by LMP: 06/30/2025 Gestational age: 9 weeks 0 days Previous ultrasound: No TECHNIQUE: Real-time conley-scale imaging of the fetus was performed transvaginal. FINDINGS: CRL: 2.0 cm, 8 weeks 4 days; INDIA 07/03/2025 heart rate: 178 BPM Gestational sac: 3.5 cm, appears within normal limits Yolk sac: 3.4 mm, appears within normal limits Right ovary: Within normal limits; 2.7 x 1.0 x 1.8 cm Left ovary: Within normal limits; 3.7 x 2.4 x 2.7 cm, CL IMPRESSION: 1. Single viable intrauterine . 2. Measurements are consistent with clinical dates. 3. 1.9 x 1.5 x 0.5 cm subchorionic hemorrhage along the posterior inferior gestational sac. MIN AMIN M.D. Body/Diagnostic Radiologist [email or web address] Transcribed: 10:[address]/Dictated by: Min Amin MD @ 11/26/2024 9:17:00 AM (Electronically Signed)
== END 2024-11-25 16:28 | disposition home or self-care (01) ==
LOC: US 16:28
PROVIDERS: Visit Provider Physician Assistant
DX: Z34.91 Encounter for supervision of normal pregnancy, unspecified, first trimester (principal); O20.9 Hemorrhage in early pregnancy, unspecified; Z3A.09 9 weeks gestation of pregnancy
CPT/HCPCS: 76817; 82565; 82570; 83021; 84156; 84450; 84460; 84520; 86592; 86703; 86704; 86706; 86762; 86787; 86803; 86850; 86900; 86901; 87086; 87340; 87491; 87591

== ENCOUNTER 2025-01-18 22:49 | Emergency (ER) | payer OTHER, SELFPAY ==
--- OUTSIDE RECORDS SUMMARY | 2025-01-18 22:51 | XMS_ITS | Clinical Summary ---
Author Organization [facility] Address [address] [place] [id number] Care Team Providers Care Apprentice Plumber Name Role Phone Giovanna Johnson Primary Care Provider + Allergies No known active allergies Medications cholecalciferol (VITAMIN D3) 50,000 unit capsuleIndications: Vitamin D deficiency Take 1 capsule by mouth once weekly. 12 capsule 0 Active ondansetron (ZOFRAN ODT) 4 mg disintegrating tabletIndications:F ever, unspecified fever cause Place 1 Tablet (4 mg) on the tongue every 8 hours if needed for Nausea/Vomit ing for up to 10 doses. 10 Tablet 4 Active Active Problems Problem Noted Date Diagnosed Date Contraception management 05/27/2015 Overview (05/27/2015): Oral contraceptives - cycle control, menstrual migraines, contraception Menstrual migraine without s tatus migrainosus, not intractable 05/27/2015 Examination of eyes and vision 12/20/2013 Immunizations Immunization Administration Dates Next Due AMB Influenza, IIV4 PF (=>6 mos Flulaval,Fluzone Fluarix)(Flu Clinic Only) 07/25/2019,08/02/2018,10/31/2016 DTaP 05/23/2002, 7,01/28/1997,11/15,1996 Hepatitis A (Peds) 07/04/2009,07/15/2008 Hepatitis B (Peds) 04/23/1997,1996, 996 Human Papilloma Virus Vaccine 05/27/2014, 013,06/10/2013 Inactivated Polio Vaccine 05/23/2002 Influenza, IIV3 (Age >=3 years) 08/30/2012,10/18,08/01/2009 Influenza, IIV4 08/10/2020,10/18/2017,10/31/2016 MENINGOCOCCAL VACCINE 2 VIAL 2MO-55YO (MENVEO) 06/12/2015 MMR 09/22/2015,05/23/2002,10/24/1997 Meningococcal Vaccine (Menactra) 07/04/2009 Oral Polio Vaccine 09/10/1997 Polio Virus, Unspecified 05/23/2002,03/1997,01/28/1997,11/15,1996 Tdap 10/18/2017,07/15/2008 Family History Medical History Relation Name Comments Good Health Brother younger Hyperlipidemia Father Cancer Maternal Grandmother leukemi a Good Health Mother Relation Name Status Comments Brother Father Maternal Grandmother Mother Social History Tobacco Use Types Packs/Day Years Used Date Smoking Tobacco: Never Smokeless Tobacco: Never Tobacco Cessation:Counseling Given: Yes Alcohol Use Standard Drinks/Week Comments Yes 0 (1 standard drink = 0.6 oz pur e alcohol) rare PHQ-2 Answer Date Recorded PHQ-2 TOTAL SCORE 0 10/19/2020 Social Connections Answer Date Recorded Frequency of Communication with Friends and Fami ly Not on file 11/06/2021 Financial Resource Strain Answer Date R ecorded Difficulty of Paying Living Expenses Not on file 11/06/2021 Difficulty of Paying Living Expenses Not on file 11/06/2021 Interpersonal Safety Answer Date Record ed Are you being hit, kicked, p ushed or yelled at (see row info)? 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 on file Not on file Not on sridhar e Obstetrics History Para Term AB IAB SAB Ectopic Multiple Livin g Live Births 0 0 0 0 0 0 0 0 0 0 Last Filed Vital Signs Vital Sign Reading Time Taken Comments Blood Pressure 129/76 03/08/2024 9:47 AM CDT Pulse 126 03/08/2024 9:47 AM CDT Temperature 38.3 C (101 F) 03/08/2024 9:47 AM CDT Respiratory Rate 16 03/08/2024 9:47 AM CDT Oxygen Saturation 97% 03/08/2024 9:47 AM CDT Inhaled Oxygen Concentration - - Weight 90.7 kg (200 lb) 03/08/2024 9:47 AM CDT Height 161 cm (5' 3.39) 10/19/2020 12:59 PM FREIGHT MANAGER Body Mass Index 35 10/19/2020 12:59 PM FREIGHT MANAGER Plan of Treatment Health Maintenance Due Date Last Done Comments HIV for age 15-65 2011 Hepatitis C screening for age 18-79 2014 BMI (ht and wt on same day) for age 18+ 10/19/2021 10/19/2020, 05/20/2019, 03/22/2018, Additional history exists Depression screening for age 12+ 10/19/2021 10/19/2020, 05/20/2019, 10/18/2017, Additional history exists COVID-19 vaccine series ( season) 2024 09/01/2021 Influenza Vaccine (#1) 2024 0, 07/25/2019, 08/02/2018, Additional history exists Pap test for age 21-65 05/21/2027 4, 05/21/2024, 10/19/2020, Additional history exists Tetanus booster 10/18/2027 10/18/2017, 07/15/2008 Tdap Completed 10/18/2017, 07/15/2008 Pneumococcal series for age 6-49 Aged Out No longer eligible based on patient's age to complete this topic Procedures Procedure Name Priority Date/Time Associated Diagnosis Comments HPV HIGH RISK Routine 05/21/2024 5:55 PM CDT from Last 3 Months or Most Recently Relevant to Health Maintenance Results * HPV HIGH RISK (05/21/2024 5:55 PM CDT) TYPE 16 Negative Negative 05/29/2024 6:23 AM CDT [facility] TYPE 18 Negative Negative 05/29/2024 6:23 AM CDT [facility] OTHER HIGH RISK TYPES Negative Negative 05/29/2024 6:23 AM CDT [facility] Other (Cervical) 05/21/2024 5:55 PM CDT 05/24/2024 9:53 AM CDT Narrative [facility] - 05/29/2024 6:23 AM CDT HPV types 16, 18, 31, 33, 35, 39, 45, 51, 52, 56, 58, 59, 66 and 68 DNA were undetectable or below the pre-set threshold. Methodology: Mario Luis 4800 HPV Test february Lesa LAMAS [employer] Final Resu lt [facility] [address] [place] [address], from Last 3 Months or Most Recently Relevant to Health Maintenance Advance Directives * Full Code (Latest Code Status on File) Date Activated Date Inactivated Comments 09/08/2016 12:26 PM 09/08/2016 4:54 PM Care Teams Apprentice Plumber Relationship Specialty Start Date End Date Giovanna Johnson PA [address] [place] [address] PCP - General Family Practice 08/24/16
--- OUTSIDE RECORDS SUMMARY | 2025-01-18 22:51 | XMS_ITS | Clinical Summary ---
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 Gender Identity Not on file Sexual Orientation Not on file Plan of Treatment Health Maintenance Due Date Last Done Comments ADVANCE CARE PLANNING 1996 ANNUAL REVIEW OF HM ORDERS 1996 YEARLY PREVENTIVE VISIT 1999 HIV SCREENING 2011 HEPATITIS C SCREENING 2014 PAP 2017 COVID-19 Vaccine ( season) 2024 09/01/2021 INFLUENZA VACCINE (#1) 2024 , 07/19/2021, 08/10/2020, Additional history exists PHQ-2 (once per calendar year) 2024 DTAP/TDAP/TD IMMUNIZATION (9 - Td or Tdap) 08/02/2032 08/02/2022, 10/18/2017, 07/15/2008, Additional history exists ZOSTER IMMUNIZATION (1 of 2) 2046 HEPATITIS B IMMUNIZATION Completed 997, 1996, 1996 HPV IMMUNIZATION Completed 05/27/2014, , 06/10/2013 MENINGITIS IMMUNIZATION Completed 06/12/2015, 07/04 Pneumococcal Vaccine: Pediatrics (0 to 5 Years) and At-Risk Patients (6 to 49 Years) Aged Out No longer eligible based on patient's age to complete this topic Care Teams Oracle Consultant Relationship Specialty Start Date End Date System, Provider Not In PCP - General Clinic 10/18/21
[2025-01-18 22:55] VITALS: BP 115/77; PULSE 129; RESP 18; TEMP 36.1; O2SAT 99; BMI 32.1
--- NOTE | 2025-01-18 23:15 | ED_ITS ---
HPI - Nausea/Vomiting/Diarrhea General Time Seen by Provider: 23:16 Date Seen: 01/18/25 Chief complaint: Nausea/Vomiting Stated complaint: 16wks , nausea diarrhea Time Seen by Provider: 01/18/25 23:15 Source: patient and RN notes reviewed Mode of arrival: ambulatory Limitations: no limitations History of Present Illness HPI Narrative: This 29-year-old female that is about 16 weeks is coming in with nausea vomiting and diarrhea. Her symptoms started about 7:00 p.m. tonight but are worsening. She has been excessively throwing up. Earlier today she felt cramping in her stomach, had heartburn all day. She has noted no blood in the vomit or diarrhea. She can not even keep any water down. She only feels discomfort in her stomach when she is actively vomiting. Her daughter was sick about a week ago. 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 She has had no recent travel. She tried some Zofran at home but did not keep that in, vomited right after. Related Data Home Medications ?Medication ?Instructions ?Recorded ?Confirmed [id number] 3-fat com #1 27 cap PO 11/25/24 01/13/25 mg-1 mg-300 mg capsule aspirin 81 mg tablet,delayed 81 mg PO QDAY 12/23/24 01/13/25 release Allergies Allergy/AdvReac Type Severity Reaction Status Date / Time No Known Allergies Allergy Verified 01/18/25 23:36 Review of Systems Narrative: As per HPI. [facility] Medical History Normal spontaneous vaginal delivery (10/14/22) ?O80 - Encounter for full-term uncomplicated delivery (ICD-10) History of gestational hypertension ?Z87.59 - Personal history of other complications of , childbirth and the puerperium (ICD-10) History of gestational diabetes ?Z86.32 - Personal history of gestational diabetes (ICD-10) UTI (urinary tract infection) ?N39.0 - Urinary tract infection, site not specified (ICD-10) Surgical History H/O myringotomy ?Z98.890 - Other specified postprocedural states (ICD-10) Family History Father Thyroid disease Paternal Grandmother Thyroid disease Mother High blood pressure Social History Narrative: Lives in [place] with and 1 child Works at [employer] as [employer]. No smoking, ETOH, or recreational drug use. What is your current living situation?: I presently have a place to live Problems where you live: no known problems In the past 12 months, utilities in danger of being shut off: no In past 12 months, lack of transportation kept you from medical appts, meetings, work, or getting things needed for daily living: no In the past 12 mos, have been you worried that your food would run out before you had money to buy more?: never true In the past 12 mos, the food you bought just didn't last and you didn't have money to buy more?: never true Smoking Status: Never smoker How often does anyone, including family, friends and others, physically hurt you : never How often does anyone, including family, friends and others, insult or talk down to you: never How often does anyone, including family, friends and others, threaten you with harm: never How often does anyone, including family, friends and others, scream or curse at you: never Exam Const: Vital Signs, click to edit/add: Vital Signs - 24 hr 01/18/25 22:55 Temperature 97.0 F L Pulse Rate [Left P ulse Oximeter] 129 H Respiratory Rate 18 Blood Pressure [Ri ght Upper Arm] 115/77 Pulse Oximetry 99 Oxygen Delivery Me thod Room Air This 29-year-old female is alert, interactive, no apparent distress. She looks like she does not feel well, hanging onto an emesis bag. Sclera clear, conjugate gaze but generally looks pale. Lungs are clear, good air entry, no tachypnea accessory muscle use. CV slightly fast but regular, no murmur, normal S1-S2. Abdomen is soft, nontender, nondistended, no uterine tenderness on palpation, no pelvic pain. Bowel sounds are somewhat active but not tympanitic. Skin visualized without rash. Documenting provider has reviewed patient's vital signs: yes Course Course ED Course: Discussed with patient that would recommend checking COVID and influenza as they can be associated with GI symptoms. Will initiate an IV with IV fluids and Zofran. Will check basic labs. She very likely has a viral gastrointestinal illness. Will try to do some initial hydration, guide therapy as indicated by labs and clinical response. Will try to get Doptones. Reevaluation(s) Time of Reevaluation #1: 00:04 Reevaluation #1: heart tones 145. Time of Reevaluation #2: 00:29 Reevaluation #2: Patient has completed her 1st bag of fluids, will order a 2 L. She would like to try some ice chips. Will see if she tolerates this. Reviewed that her influenza and COVID are negative, white blood count lactate normal. We are still waiting on her chemistries. Time of Reevaluation #3: 01:16 Reevaluation #3: Patient is nearing completion of her fluids. Did review her chemistries did show low bicarb minute an slightly low potassium. There is some potassium in the lactated Ringer she received. Her body will resolve this. She only has a few tablets of Zofran at home, will give her the 10 tablets from [facility]. Vital Signs Vital signs: Initial Vital Signs Temperature 97.0 F L 01/18/25 22:55 Temperature Source Temporal Artery Scan 01/18/25 22:55 Pulse Rate 129 H 01/18/25 22:55 Pulse Rhythm Regular 01/18/25 22:55 Respiratory Rate 18 01/18/25 22:55 Blood Pressure 115/77 01/18/25 22:55 Blood Pressure Mean 89 01/18/25 22:55 Blood Pressure Position Sitting 01/18/25 22:55 Pulse Oximetry 99 01/18/25 22:55 Oxygen Delivery Method Room Air 01/18/25 22:55 Vital Signs Temperature 97.0 F L 01/18/25 22:55 Pulse Rate 129 H 01/18/25 22:55 Respiratory Rate 18 01/18/25 22:55 Blood Pressure 115/77 01/18/25 22:55 Pulse Oximetry 99 01/18/25 22:55 Oxygen Delivery Method Room Air 01/18/25 22:55 Temperature 97.0 F L 01/18/25 22:55 Pulse Rate 129 H 01/18/25 22:55 Respiratory Rate 18 01/18/25 22:55 Blood Pressure 115/77 01/18/25 22:55 Pulse Oximetry 99 01/18/25 22:55 Oxygen Delivery Method Room Air 01/18/25 22:55 Medications Administered Medications: Generic Name Dose Route Start Last Admin Trade Name Freq PRN Reason Stop Dose Admin Lactated Ringer's 1,000 mls @ 1,000 mls/hr 01/19/25 00:29 01/19/25 00:57 Lactated Ringers 1000 Ml IV 01/19/25 01:28 1,000 mls/hr .Q1H ONE Administration Discontinued Medications Generic Name Dose Route Start Last Admin Trade Name Freq PRN Reason Stop Dose Admin Sodium Chloride 1,000 mls @ 1,000 mls/hr 01/18/25 23:20 01/19/25 00:59 0.9 % Sodium Chloride 1000 Ml IV 01/19/25 00:19 Infused .Q1H AASHISH Infusion Ondansetron HCl 4 mg 01/18/25 23:19 01/18/25 23:35 Ondansetron 2 Mg/Ml Inj IVP 01/18/25 23:20 4 mg ONCE ONE Administration MDM - Nausea/Vomiting/Diarrhea Lab Data Attestation: I reviewed the patient's lab results. Labs: Lab Results 01/18/25 Range/Units 23:29 WBC 9.91 (4.50-11.00) K/uL RBC 4.62 (4.00-5.20) m/uL Hgb 13.9 (12.0-16.0) gm/dL Hct 40.0 (33.0-51.0) % MCV 87 (80-100) fL MCH 30 (26-34) pg MCHC 35 (32-36) gm/dL RDW Coeff of Camilla 12.2 (11.5-15.5) % Plt Count 264 (140-440) K/uL Neut % (Auto) 90.7 H (42.0-72.0) % Lymph % (Auto) 5.4 L (20-44) % Elbert % (Auto) 3.3 (0.0-11.0) % Eos % (Auto) 0.3 (0.0-7.0) % Baso % (Auto) 0.1 (0.0-3.0) % Neut # (Auto) 9.00 H (1.7-7.0) K/uL Lymph # (Auto) 0.50 L (0.90-2.90) K/uL Elbert # (Auto) 0.30 (0.00-0.90) K/UL Eos # (Auto) 0.03 (0.00-0.50) K/uL Baso # (Auto) 0.01 (0.00-0.30) K/uL Abs Immat Gran (auto) 0.02 (0.00-0.30) K/uL Imm/Tot Granulo (auto) 0.2 % Sodium 137 (135-149) mmol/L Potassium 3.2 L (3.6-5.1) mmol/L Chloride 105 (96-114) mmol/L Carbon Dioxide 18 L (20-32) mmol/L Anion Gap 14 (7-15) mEq/L BUN 10 (5-24) mg/dL Creatinine 0.4 L (0.5-1.5) mg/dL Estimated Creat Clear 180.81 Estimated GFR 138 ml/min Glucose 105 (60-115) mg/dL Lactate 1.2 (0.5-1.9) mmol/L Calcium 8.4 (8.4-10.6) mg/dL Total Bilirubin 0.8 (0.1-1.5) mg/dL AST 14 (12-35) U/L ALT 11 (4-35) U/L Alkaline Phosphatase 67 (40-150) U/L Total Protein 7.4 (6.0-8.3) g/dL Albumin 4.4 (3.3-5.0) g/dL SARS-CoV-2 (PCR) Negative SARS-CoV-2 (Negative) Influenza Type A (PCR) Negative PCR FLU A (Negative) Influenza Type B (PCR) Negative PCR FLU B (Negative) Discharge Plan Discharge Clinical Impression: Gastroenteritis Patient Disposition: Home, Self-Care Condition: Stable Instructions: Gastroenteritis (ED) Additional Instructions: Have provided refill of Zofran from [facility]. Can use per prescription if needed for further nausea or vomiting. Diarrhea can continue longer than nausea and vomiting. Try to stay hydrated sipping 1-2 tsp every 5-10 minutes while awake of clear liquids. Can advance your diet back to normal as you feel better . If you are not improving over the next couple days, feel you are worsening at any point or have further concerns, please seek re-evaluation. Activity Level: Activity as Tolerated Prescriptions: No Action [id number] 3-fat com #1 27-1-300 mg capsule PO aspirin 81 mg tablet,delayed release (DR/EC) 81 mg PO QDAY Follow Up/Referrals: Provider,Not a Local [Primary Care Provider] - Stand Alone Forms: [employer] Info Instructions
--- OUTSIDE RECORDS SUMMARY | 2025-01-18 23:24 | XMS_ITS | Clinical Summary ---
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 Not on file [...] 161 cm (5' 3.39) 10/19/2020 12:59 PM TELEPHONE APPOINTMENT CLERK Body Mass Index 35 10/19/2020 12:59 PM TELEPHONE APPOINTMENT CLERK Plan of Treatment Health Maintenance Due Date [...] 16 Negative Negative 05/29/2024 6:23 AM CDT [facility] TYPE 18 Negative Negative 05/29/2024 6:23 AM CDT [facility] TRAL LABORATORY OTHER HIGH RISK TYPES Negative Negative 05/29/2024 6:23 AM CDT [facility] TRAL LAB[facility]ORY Other (Cervical) 05/21/2024 5:55 PM CDT 05/24/2024 9:53 AM CDT Narrative [facility] - 05/29/2024 6:23 AM CDT HPV types 16, 18, 31, 33, 35, 39, 45, 51, 52, 56, 58, 59, 66 and 68 DNA were undetectable or below the pre-set threshold. Methodology: Mario Luis 4800 HPV Test february Lesa LAMAS MICROBIOLOGY Final Resu lt [facility] [address] [place] [address], from Last 3 Months or Most Recently Relevant to Health Maintenance Advance Directives * Full Code (Latest Code Status on File) Date Activated Date Inactivated Comments 09/08/2016 12:26 PM 09/08/2016 4:54 PM Care Teams Company Controller Relationship Specialty Start Date End Date Giovanna Johnson PA [address] [place] [address] PCP - General Family Practice 08/24/16
--- OUTSIDE RECORDS SUMMARY | 2025-01-18 23:24 | XMS_ITS | Clinical Summary ---
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
[2025-01-18 23:34] LABS: Lactate* 1.2 mmol/L (0.5-1.9)
[2025-01-18] MEDS: 0.9 % SODIUM CHLORIDE 1000 ml 1,000 ML IV (23:35)
[2025-01-18] MEDS: ONDANSETRON 2 MG/ML inj 4 MG IVP (23:35)
[2025-01-18 23:40] LABS: Basophils Absolute Auto 0.01 K/uL (0.00-0.30); Basophils Percent Auto 0.1 % (0.0-3.0); Eosinophils Absolute Auto 0.03 K/uL (0.00-0.50); Eosinophils Percent Auto 0.3 % (0.0-7.0); Hemoglobin* 13.9 gm/dL (12.0-16.0); Immature Granulocytes Abs Auto 0.02 K/uL (0.00-0.30); Immature Granulocytes Pct Auto 0.2 %; Lymphocytes Percent Auto 5.4 % (20-44); Mean Corpuscular HGB Conc 35 gm/dL (32-36); Mean Corpuscular Hemoglobin 30 pg (26-34); Mean Corpuscular Volume 87 fL (80-100); Monocytes Percent Auto 3.3 % (0.0-11.0); Neutrophils Percent Auto 90.7 % (42.0-72.0); Platelet Count* 264 K/uL (140-440); RDW Coefficient of Variation % 12.2 % (11.5-15.5); Red Blood Count 4.62 m/uL (4.00-5.20); White Blood Count* 9.91 K/uL (4.50-11.00)
[2025-01-18 23:48] LABS: Slide Review Reflex No
[2025-01-19 00:14] LABS: PCR FLU A Negative PCR FLU A (Negative); PCR FLU B Negative PCR FLU B (Negative); SARS PCR* Negative SARS-CoV-2 (Negative)
[2025-01-19 00:44] LABS: Albumin* 4.4 g/dL (3.3-5.0); Chloride* 105 mmol/L (96-114)
[2025-01-19 00:45] LABS: Potassium* 3.2 mmol/L (3.6-5.1); Sodium* 137 mmol/L (135-149)
[2025-01-19 00:47] LABS: Anion Gap 14 mEq/L (7-15); Aspartate Amino Transferase* 14 U/L (12-35); Bilirubin Total* 0.8 mg/dL (0.1-1.5); Blood Urea Nitrogen* 10 mg/dL (5-24); Carbon Dioxide* 18 mmol/L (20-32); Creatinine* 0.4 mg/dL (0.5-1.5); Est. Creatinine Clearance* 180.81; Estimated Glomerular Filt Rate 138 ml/min
[2025-01-19 00:48] LABS: Alanine Aminotransferase* 11 U/L (4-35); Alkaline Phosphatase* 67 U/L (40-150); Calcium* 8.4 mg/dL (8.4-10.6); Glucose* 105 mg/dL (60-115); Total Protein* 7.4 g/dL (6.0-8.3)
[2025-01-19] MEDS: LACTATED RINGERS 1000 ML 1,000 ML IV (00:57)
== END 2025-01-19 01:37 | disposition home or self-care (01) ==
PROVIDERS: Emergency Provider Family Medicine
DX: K52.9 Noninfective gastroenteritis and colitis, unspecified (principal); Z33.1 Pregnant state, incidental
CPT/HCPCS: 36415; 80053; 83605; 85025; 87631; 96361; 96374; 99284; J2405; J7030; J7120

== ENCOUNTER 2025-02-11 08:58 | Outpatient (CLI) | payer OTHER, SELFPAY ==
--- NOTE | 2025-02-11 09:15 | CRLHL7_ITS ---
For Patients: As a result of the Century Cures Act, medical imaging exams and procedure reports are released immediately into your electronic medical record. You may view this report before your referring provider. If you have questions, please contact your health care provider. OB ULTRASOUND SURVEY LMP: 09/23/2024. INDIA by LMP: 06/30/2025. GA: 20 w, 1 d. INDICATION: anatomy scan. TECHNIQUE: Real time grayscale imaging of the fetus was performed. Evaluate anatomy. Transabdominal. position: Multiple positions. Cervix: Visualized. Technique: Transabdominal. Length of closed cervix: 4.4 cm. Placenta/cord: Anterior. Technique: Transabdominal. Placenta tip to internal OS: 3.2 cm. Umbilical Cord: 3-vessel cord. Placenta insertion: Central. Amniotic Fluid: 5.2 cm SDP (greater than/equal to: 2- less than 8 cm). SURVEY: Observed Structures. Calvarium/Spine: Cerebellum: 2.0 cm, 20 w 4 d. Cisterna Magna: 3.0 mm. Nuchal Fold: 4.9 mm. Lateral Ventricle: 7.1 mm. CSP: Yes. Midline Falx: Yes. Choroid Plexus: Yes. Spine: Yes. Abdomen: Stomach: Yes. Abd Cord Insertion: Yes. Urinary Bladder: Yes. Kidneys: Yes. Diaphragm: Yes. Face: Nose/lips: Yes. Orbital view: Yes. Profile: Yes. Limbs: Upper Extremities: Yes. Lower Extremities: Yes. Hands: Yes. Feet: Yes. Vascular: 4-Chamber Heart: Yes. LVOT: Yes. RVOT: Yes. 3VV: Yes. 3VTV: Yes. BPD: 4.6 cm. 19 w, 6 d, 40 percent. HC: 17.8 cm. 20 w, 2 d, 47 percent. AC: 15.2 cm. 20 w, 3 d, 52 percent. FL: 3.4 cm. 20 w, 5 d, 63 percent. FL/AC ratio: 22.51 percent. HC/AC ratio: 1.17. heart rate: 141 bpm. age by this US: 20 w, 3 d. INDIA by this US: 06/28/2025. EFW: 356.66 g. Weight: 13 oz. Percentile by INDIA: 65th percent. IMPRESSION: 1. Concordance of clinical and sonographic dating. 2. Normal anatomic survey. 3. Transabdominal technique. Adarsh Arrieta M.D. Diagnostic Radiologist [email or web address] VIOLET/reid mathews/Dictated by: Adarsh Arrieta MD @ 02/11/2025 12:32:00 PM (Electronically Signed)
== END 2025-02-11 08:59 | disposition home or self-care (01) ==
LOC: US 08:59
PROVIDERS: Visit Provider Physician Assistant
DX: Z34.92 Encounter for supervision of normal pregnancy, unspecified, second trimester (principal); Z3A.20 20 weeks gestation of pregnancy
CPT/HCPCS: 76805

== ENCOUNTER 2025-04-08 08:01 | Outpatient (CLI) | payer OTHER, SELFPAY | END 2025-04-08 08:02 | disposition home or self-care (01) | LOC: NFLDREF 04-10 09:52 | PROVIDERS: Visit Provider Physician Assistant | DX: Z34.93 Encounter for supervision of normal pregnancy, unspecified, third trimester (principal); Z3A.28 28 weeks gestation of pregnancy | CPT/HCPCS: 86592 ==

== ENCOUNTER 2025-04-11 08:59 | Outpatient (CLI) | payer OTHER, SELFPAY | END 2025-04-11 09:00 | disposition home or self-care (01) | LOC: NFLDREF 04-12 10:24 | PROVIDERS: Visit Provider Physician Assistant | DX: Z34.93 Encounter for supervision of normal pregnancy, unspecified, third trimester (principal) | CPT/HCPCS: 82951; 82952 ==

== ENCOUNTER 2025-05-06 07:05 | Outpatient (CLI) | payer OTHER, SELFPAY ==
--- NOTE | 2025-05-06 07:15 | CRLHL7_ITS ---
For Patients: As a result of the Century Cures Act, medical imaging exams and procedure reports are released immediately into your electronic medical record. You may view this report before your referring provider. If you have questions, please contact your health care provider. INDICATION: Gestational diabetes COMPARISON: 02/11/2025 TECHNIQUE: Levine-scale and color Doppler of the gravid uterus and fetus from a transabdominal approach. FINDINGS: Provided gestational age: 32 weeks 1 day Delete single intrauterine gestation in a breech presentation. heart rate is 130 bpm. The heart, stomach, kidneys, and bladder appear normal. No pleural effusion, pericardial effusion, ascites, or skin edema. Biparietal diameter: 8.1 cm Head circumference: 30.3 cm Abdominal circumference: 27.1 cm Femur length: 6.2 cm HC/AC: 1.12, normal for gestational age. The composite ultrasound estimated gestational age is 32 weeks 1 day. The estimated weight is 1805 grams, or 4 pounds 0 ounces. This corresponds to the 24th percentile for gestational age. Amniotic fluid volume is normal. The placenta is anterior. No previa. No periplacental hemorrhage. WELLBEING tone: 2/2 movement: 2/2 breathin/2 Amniotic fluid volume: 2/2 The single deepest vertical pocket measures: 5.1 cm. MATERNAL Cervical length is 4.1 cm. No funneling at the os. Measured transabdominally. IMPRESSION: 1. Single intrauterine gestation in breech presentation. 2. Biophysical profile score is 6/8. No points for breathing. 3. Growth is concordant with dates. The estimated weight is at the 24th percentile. Dictated by Yasmeen Perez MD @ 05/06/2025 8:11:54 AM (Electronically Signed)
--- OUTSIDE RECORDS SUMMARY | 2025-05-06 07:41 | XMS_ITS | Clinical Summary ---
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 Gender Identity Not on file Sexual Orientation Not on file Plan of Treatment Health Maintenance Due Date Last Done Comments ADVANCE CARE PLANNING 1996 ANNUAL REVIEW OF HM ORDERS 1996 YEARLY PREVENTIVE VISIT 1999 HIV SCREENING 2011 HEPATITIS C SCREENING 2014 PAP 2017 COVID-19 VACCINE ( season) 2024 09/01/2021 PHQ-2 (once per calendar year) 2024 INFLUENZA VACCINE (Season Ended) 2025 08/22/2022, 07/19/2021, 08/10/2020, Additional history exists DTAP/TDAP/TD VACCINE (9 - Td or Tdap) 08/02/2032 08/02/2022, 10/18/2017, 07/15/2008, Additional history exists ZOSTER VACCINE (1 of 2) 2046 HEPATITIS B VACCINE Completed 04/23/1997, 1996, 1996 HPV VACCINE Completed 05/27/2014, 08/06, 06/10/2013 MENINGITIS VACCINE Completed 06/12/2015, 07/04/2009 PNEUMOCOCCAL VACCINE: PEDIATRICS (0 to 5 YEARS) AND AT-RISK PATIENTS (6 to 49 YEARS) Aged Out No longer eligible based on patient's age to complete this topic Care Teams Weed Control Inspector Relationship Specialty Start Date End Date System, Provider Not In PCP - General Clinic 10/18/21
--- OUTSIDE RECORDS SUMMARY | 2025-05-06 07:41 | XMS_ITS | Clinical Summary ---
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 Not on file [...] 161 cm (5' 3.39) 10/19/2020 12:59 PM SHRIMP PEELER Body Mass Index 35 10/19/2020 12:59 PM SHRIMP PEELER Plan of Treatment Health Maintenance Due Date Last Done Comments HIV for age 15-65 2011 Hepatitis C screening for age 18-79 2014 BMI (ht and wt on same day) for age 18+ 10/19/2021 10/19/2020, 05/20/2019, 03/22/2018, Additional history exists Depression screening for age 12+ 10/19/2021 10/19/2020, 05/20/2019, 10/18/2017, Additional history exists COVID-19 vaccine series ( season) 2024 09/01/2021 Influenza Vaccine (Season Ended) 2025 08/10/2020, 07/25/2019, 08/02/2018, Additional history exists Pap test for age 21-65 05/21/2027 , 05/21/2024, 10/19/2020, Additional history exists Tetanus booster 10/18/2027 10/18/2017, 07/15/2008 Hepatitis B series for 19+ Completed 04/23, 1996, 1996 (IA) Tdap Completed 10/18/2017, 07/15/2008 Pneumococcal series for [...] 16 Negative Negative 05/29/2024 6:23 AM CDT [facility] TRAL LAB[facility]ATORY TYPE 18 Negative Negative 05/29/2024 6:23 AM CDT [facility] TRAL LABORATORY OTHER HIGH RISK TYPES Negative Negative 05/29/2024 6:23 AM CDT [facility] Other (Cervical) 05/21/2024 5:55 PM CDT 05/24/2024 9:53 AM CDT Narrative [facility] - 05/29/2024 6:23 AM CDT HPV types 16, 18, 31, 33, 35, 39, 45, 51, 52, 56, 58, 59, 66 and 68 DNA were undetectable or below the pre-set threshold. Methodology: Mario Luis 4800 HPV Test february Lesa LAMAS MICROBIOLOGY Final Resu lt [facility] [address] [place] [address], [place] from Last 3 Months or Most Recently Relevant to Health Maintenance Advance Directives * Full Code (Latest Code Status on File) Date Activated Date Inactivated Comments 09/08/2016 12:26 PM 09/08/2016 4:54 PM Care Teams Director Hr Communications Relationship Specialty Start Date End Date Giovanna Johnson PA [facility] [place] [address] PCP - General Family Practice 08/24/16
--- OUTSIDE RECORDS SUMMARY | 2025-05-07 00:48 | XMS_ITS | Clinical Summary ---
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 Not on file Not [...] 161 cm (5' 3.39) 10/19/2020 12:59 PM FORECLOSURE PARALEGAL Body Mass Index 35 10/19/2020 12:59 PM FORECLOSURE PARALEGAL Plan of Treatment Health Maintenance Due Date Last Done Comments HIV for age 15-65 2011 Hepatitis C screening for age 18-79 2014 BMI (ht and wt on same day) for age 18+ 10/19/2021 10/19/2020, 05/20/2019, 03/22/2018, Additional history exists Depression screening for age 12+ 10/19/2021 10/19/2020, 05/20/2019, 10/18/2017, Additional history exists COVID-19 vaccine series ( season) 2024 09/01/2021 Influenza Vaccine (#1) 2025 0, 07/25/2019, 08/02/2018, Additional history exists Pap test for age 21-65 05/21/2027 4, 05/21/2024, 10/19/2020, Additional history exists Tetanus booster 10/18/2027 10/18/2017, 07/15/2008 Hepatitis B series for 19+ Completed 04/23, 1996, 1996 Pneumococcal series for age 6-49 Aged Out No longer eligible based on patient's age to complete this topic Procedures Procedure Name Priority Date/Time Associated Diagnosis Comments HPV HIGH RISK Routine 05/21/2024 5:55 PM CDT from Last 3 Months or Most Recently Relevant to Health Maintenance Results * HPV HIGH RISK (05/21/2024 5:55 PM CDT) TYPE 16 Negative Negative 05/29/2024 6:23 AM CDT [facility] TRAL LABORATORY TYPE 18 Negative Negative 05/29/2024 6:23 AM CDT [facility] TRAL LABORATORY OTHER HIGH RISK TYPES Negative Negative 05/29/2024 6:23 AM CDT [facility] TRA LABORATORY Other (Cervical) 05/21/2024 5:55 PM CDT 05/24/2024 9:53 AM CDT Narrative [facility] - 05/29/2024 6:23 AM CDT HPV types 16, 18, 31, 33, 35, 39, 45, 51, 52, 56, 58, 59, 66 and 68 DNA were undetectable or below the pre-set threshold. Methodology: Mario Luis 4800 HPV Test february Lesa LAMAS MICROBIOLOGY Final Resu lt [facility] [address] [place] [address], [place] from Last 3 Months or Most Recently Relevant to Health Maintenance Advance Directives * Full Code (Latest Code Status on File) Date Activated Date Inactivated Comments 09/08/2016 12:26 PM 09/08/2016 4:54 PM Care Teams Metal Ceiling Hanger Relationship Specialty Start Date End Date Giovanna Johnson PA [facility] [place] [address] PCP - General Family Practice 08/24/16
--- OUTSIDE RECORDS SUMMARY | 2025-05-07 00:48 | XMS_ITS | Clinical Summary ---
Author Organization [facility] Address [address] [place] [address] Care Team Providers Care Guide Tour Name Role Phone System, Provider Not In Primary Care Provider Un available Social History Tobacco Use Types Packs/Day Years Used Date Smoking Tobacco: Never Assessed Adolescent Education Answer Date Record ed Getting School Help Needed Not on file 07/29 Comments No Sex and Gender Information Value Date Recorded Sex Assigned at Not on file Legal Sex Female 9:28 PM RETURN AGENT Gender Identity Not on file Sexual Orientation [...] age to complete this topic Care Teams Guide Tour Relationship Specialty Start Date End Date System, Provider Not In PCP - General Clinic 10/18/21
== END 2025-05-06 07:06 | disposition home or self-care (01) ==
PROVIDERS: Visit Provider Physician Assistant
DX: O24.419 Gestational diabetes mellitus in pregnancy, unspecified control (principal); Z3A.32 32 weeks gestation of pregnancy
CPT/HCPCS: 76816; 76819

== ENCOUNTER 2025-05-21 16:03 | Outpatient (CLI) | payer OTHER, SELFPAY | END 2025-05-21 16:04 | disposition home or self-care (01) | LOC: NFLDREF 05-24 07:22 | PROVIDERS: Visit Provider Physician Assistant | DX: O99.891 Other specified diseases and conditions complicating pregnancy (principal); Z20.828 Contact with and (suspected) exposure to other viral communicable diseases | CPT/HCPCS: 86644; 86645 ==

== ENCOUNTER 2025-06-02 17:20 | Outpatient (CLI) | payer OTHER, SELFPAY ==
--- NOTE | 2025-06-02 17:30 | CRLHL7_ITS ---
For Patients: As a result of the Century Cures Act, medical imaging exams and procedure reports are released immediately into your electronic medical record. You may view this report before your referring provider. If you have questions, please contact your health care provider. INDICATION: Third trimester growth check. Gestational diabetes mellitus. TECHNIQUE: Ultrasound OB pelvis transabdominal. Real-time conley-scale imaging of the fetus was performed as well as color Doppler and spectral Doppler analysis of the umbilical artery. COMPARISON: May 06, 2025. FINDINGS: Single living intrauterine gestation. heart rate: 134 beats per minute. Presentation: Cephalic. Placenta: Anterior. Amniotic fluid deepest pocket: 6 cm. Cervix: 3 cm. The following biometric measurements were obtained: Biparietal diameter: 35 weeks 3 days. Head circumference: 37 weeks 4 days. Abdominal circumference: 36 weeks 4 days. Femur length: 35 weeks 3 days. EFW: 2890 Grams, 58 %. AUA: 36 weeks 2 days. [place] (AUA): June 28, 2025. IMPRESSION.: Viable intrauterine . No abnormalities seen. Dictated by Thierry Corona MD @ 06/07/2025 8:33:39 AM (Electronically Signed)
== END 2025-06-02 17:21 | disposition home or self-care (01) ==
LOC: US 17:21
PROVIDERS: Visit Provider Physician Assistant
DX: O24.419 Gestational diabetes mellitus in pregnancy, unspecified control (principal); Z3A.36 36 weeks gestation of pregnancy
CPT/HCPCS: 76816; 86644; 86645

== ENCOUNTER 2025-06-02 18:19 | Outpatient (CLI) | payer OTHER, SELFPAY | END 2025-06-02 18:20 | disposition home or self-care (01) | LOC: NFLDREF 06-04 19:29 | PROVIDERS: Visit Provider Physician Assistant | DX: O99.891 Other specified diseases and conditions complicating pregnancy (principal); Z20.828 Contact with and (suspected) exposure to other viral communicable diseases; O24.419 Gestational diabetes mellitus in pregnancy, unspecified control; Z3A.36 36 weeks gestation of pregnancy | CPT/HCPCS: 86644; 86645 ==

== ENCOUNTER 2025-06-09 09:59 | Outpatient (CLI) | payer OTHER, SELFPAY ==
[2025-06-10 12:02] LABS: Strep B DNA Probe Negative (Negative)
[2025-06-10 13:20] LABS: Strep B Susceptibility Needed? No
== END 2025-06-09 10:00 | disposition home or self-care (01) ==
LOC: NFLDREF 09:59
PROVIDERS: Visit Provider Obstetrics & Gynecology
DX: Z34.83 Encounter for supervision of other normal pregnancy, third trimester (principal)
CPT/HCPCS: 87081; 87653

== ENCOUNTER 2025-06-22 16:28 | Inpatient (IN) | payer OTHER, SELFPAY ==
[2025-06-22 16:36] VITALS: BMI 32.3
[2025-06-22 16:44] VITALS: BP 117/71; PULSE 90; PULSE 92; O2SAT 98
[2025-06-22 17:25] VITALS: RESP 18; TEMP 36.8
--- NOTE | 2025-06-22 17:57 | P.LDBA_ITS ---
Subjective History of Present Illness Time Seen by Provider: 17:40 Narrative: Patient is being admitted to Labor and Delivery for induction of labor secondary to GDMA1. She is a 29 year old at 38 6/7 weeks gestation. Her full history and physical was dictated by Dr. Yañez on 06/09/2025. Please see this for details. She feels well. She notes an increase in mild contraction frequency over the last week and yesterday. She denies leakage of fluid or vaginal bleeding. Has noticed a mild increase in physiologic discharge. Her fetus is active. Finger stick blood sugar on arrival is 91. Specific Issues/Plans Partner: [] Girl! Daughter: Champ H&P: Pari on 06/09 IOL with cervical ripening @39 weeks (Leos score 4 on 06/17/25) # Gestational diabetes, currently diet-controlled history of gestational diabetes, diet controlled Hemoglobin A1c: 5.1% 1 hr GTT = 154 3 hr GTT: 82, 191H, 179H, 130 Nutrition referral 04/14/2025 Weekly testing starting 40 weeks Growth US Q4 weeks beginning 28 weeks Delivery 39 0/7 - 40 6/7 weeks # history of gestational hypertension Aspirin 81 mg Baseline pre-E: normal, pr/cr ratio: 0.04 # obesity, BMI 33.7 # CMV exposure at her job, she was gloved, low risk situation CMV testing: neg IgG, IgM Repeat in 2 weeks: negative Imagin/8: anatomy scan. Anterior placenta without previa, three-vessel cord, SDP 5.2 cm, normal anatomy, EFW 65%, AC 52%, all growth parameters within normal ranges. 05/06: Single intrauterine gestation in breech presentation. Biophysical profile score is 6/8. No points for breathing. Growth is concordant with dates. The estimated weight is at the 24th percentile. 06/02: EFW 58.5%, SDP 6.0cm, vertex Vaccinations: COVID: [] Flu: [] Tdap: 04/21/2025 RSV: [] 32 week mental health: 05/20/25 GBS negative Last pap: 05/21/24 OB - Problem Based A/P Additional Plan (1) Encounter for induction of labor: Status: Acute (2) Gestational diabetes: Status: Acute Plan The patient has an unfavorable cervix. Her previous labor was induced with misoprostol and she had a good experience. Cervical ripening options were reviewed and through shared decision making, elected to proceed with vaginal misoprostol cervical ripeng per protocol. Will monitor blood sugar per protocol as well. Pain control options reviewed. Will sign out care to Dr. Yañez in the morning. Delivery/Labor/Induction Plan Plan: induction Induction method: per misoprostol protocol OB Result Labs Blood Type: O (+) positive Rubella: immune RPR/VDLR: nonreactive GBS Status: negative HBsAG: negative OB Exam Physical Exam Vital signs: Temp Pulse Resp BP Pulse Ox 98.2 F 92 18 117/71 98 06/22/25 17:25 06/22/25 16:44 06/22/25 17:25 06/22/25 16:44 06/22/25 16:44 Detailed Labor and Delivery Exam Patient Gravid: yes Dilation (cm): 1 Effacement (%): 50 Cervix position: mid Consistency: medium Cervical ripeness score: 4 Contraction Frequency: irregular Tachysystole: No Contraction intensity: Mild Fetus (Single) Station: -3 Amniotic Membrane Status: intact Heart Rate Baseline: 135 Monitor Accelerations: Present Monitor Decelerations: None Retirement Variability: Moderate (6-25)
[2025-06-22 21:01] VITALS: BP 120/76; PULSE 98; RESP 16; TEMP 36.9
[2025-06-23] VITALS (168 sets, daily range): BP systolic 82–147; BP diastolic 50–95; PULSE 53–116; RESP 16–18; TEMP 36.4–36.9; O2SAT 91–100
--- NOTE | 2025-06-23 07:19 | P.OBPN_ITS ---
Subjective Date Seen: 06/23/25 Narrative: Peggy is a 29yo at 39w0d GA ongoing IOL for GDMA1. is otherwise complicated by history of gestational hypertension. Overnight, induction was started with vaginal Cytotec. Patient is feeling well this morning. She does feel regular contractions, rated 4/10. Denies vaginal bleeding or leaking of fluid. Endorses active movement. Discussed potential next steps in induction of labor, patient would desire AROM if safe to do so as she did well with this sequence with her last induction. Risks/benefits reviewed, verbal consent obtained. Objective Exam: General: Alert and oriented, no acute distress Psych: Appropriate mood and affect Abdomen: Gravid. Cervix: 2/70/-1, AROM performed with return of clear fluid FHR: Category 1. Baseline 130bpm, moderate variability, 15x15 accelerations present, no decelerations [place]: Contractions approximately q2-4 minutes Vital Signs: Last Vital Signs Temp 98.1 F 06/23/25 06:07 Pulse 76 06/23/25 06:07 Resp 16 06/23/25 06:07 BP 114/77 06/23/25 06:07 Pulse Ox 98 06/22/25 16:44 Contractions Contraction intensity: Mild Assessment Station: -3 Heart Rate Baseline: 135 Monitor Accelerations: Present Monitor Decelerations: None Plan Plan: Peggy is a 29yo at 39w0d GA ongoing IOL for GDMA1. is otherwise complicated by history of gestational hypertension. - IOL has included cytotec PV x5, last dose at 0600. Cervix is now 2/70/-1. Discussed options for next step in IOL, where AROM was performed with return of clear fluid. Anticipate pitocin may be required, but for now will proceed expectantly for 1-2 hours then reassess based on contraction frequency and intensity. - Pain control per patient preference, eventually desires epidural - Next check in 4 hours, sooner as clinically indicated - Blood glucose monitoring and insulin per protocol or GDM A1 - EFW 2890g at 58%ile by growth US on 06/23 - Blood type O positive - GBS negative
[2025-06-23 10:28] LABS: Hematocrit 35.0 % (33.0-51.0); Hemoglobin* 12.1 gm/dL (12.0-16.0); Immature Granulocytes Abs Auto 0.01 K/uL (0.00-0.30); Immature Granulocytes Pct Auto 0.1 %; Lymphocytes Absolute Auto 1.63 K/uL (0.90-2.90); Mean Corpuscular HGB Conc 35 gm/dL (32-36); Mean Corpuscular Hemoglobin 31 pg (26-34); Mean Corpuscular Volume 89 fL (80-100); RDW Coefficient of Variation % 12.7 % (11.5-15.5); Red Blood Count 3.94 m/uL (4.00-5.20); White Blood Count* 8.07 K/uL (4.50-11.00)
[2025-06-23 10:38] LABS: Slide Review Reflex No
[2025-06-23] MEDS: LACTATED RINGERS 1000 ML 1,000 ML 1200 ML IV ×2 (11:43→12:44)
[2025-06-23] MEDS: ROPIVACAINE 0.2% 100 ml 100 ML 12 MG EPIDURAL (12:19)
[2025-06-23] MEDS: BUPIVACAINE 0.25% PF 10 ML 10 ML ML EPIDURAL (12:45)
--- NOTE | 2025-06-23 12:47 | PM.ANBPRC ---
[facility] Medical History Normal spontaneous vaginal delivery (10/14/22) ?O80 - Encounter for full-term uncomplicated delivery (ICD-10) History of gestational hypertension ?Z87.59 - Personal history of other complications of , childbirth and the puerperium (ICD-10) History of gestational diabetes ?Z86.32 - Personal history of gestational diabetes (ICD-10) UTI (urinary tract infection) ?N39.0 - Urinary tract infection, site not specified (ICD-10) Surgical History H/O myringotomy ?Z98.890 - Other specified postprocedural states (ICD-10) Family History Father Thyroid disease Paternal Grandmother Thyroid disease Mother High blood pressure Social History Narrative: Lives in [place] with and 1 child Works at [employer] as [employer]. No smoking, ETOH, or recreational drug use. What is your current living situation?: I presently have a place to live Problems where you live: no known problems In the past 12 months, utilities in danger of being shut off: no In past 12 months, lack of transportation kept you from medical appts, meetings, work, or getting things needed for daily living: no In the past 12 mos, have been you worried that your food would run out before you had money to buy more?: never true In the past 12 mos, the food you bought just didn't last and you didn't have money to buy more?: never true Smoking Status: Never smoker How often does anyone, including family, friends and others, physically hurt you: never How often does anyone, including family, friends and others, insult or talk down to you: never How often does anyone, including family, friends and others, threaten you with harm: never How often does anyone, including family, friends and others, scream or curse at you: never Meds Home Medications and Allergies Home Medications ?Medication ?Instructions ?Recorded ?Confirmed ?Type [id number] 3 fatty no.1 27 cap PO 11/25/24 06/17/25 History mg-1 mg-300 mg capsule aspirin 81 mg tablet,delayed 81 mg PO QDAY 12/23/24 06/22/25 History release blood sugar diagnostic (Blood #100 ea 04/14/25 06/22/25 Rx Glucose Test strips) blood-glucose meter #1 ea 04/14/25 06/22/25 Rx lancets (Accu-Chek Softclix #100 ea 04/14/25 06/17/25 Rx Lancets) Allergies Allergy/AdvReac Type Severity Reaction Status Date / Time No Known Allergies Allergy Verified 06/22/25 20:36 Results Labs Labs: Laboratory Results - last 24 hr 06/22/25 10:06 WBC 8.07 RBC 3.94 L Hgb 12.1 Hct 35.0 MCV 89 MCH 31 MCHC 35 RDW Coeff of Camilla 12.7 Plt Count 219 Neut % (Auto) 72.8 H Lymph % (Auto) 20.2 [place] % (Auto) 6.1 Eos % (Auto) 0.6 Baso % (Auto) 0.2 Neut # (Auto) 5.90 Lymph # (Auto) 1.63 [place] # (Auto) 0.50 Eos # (Auto) 0.05 Baso # (Auto) 0.02 Abs Immat Gran (auto) 0.01 Imm/Tot Granulo (auto) 0.1 Blood Type O Positive Antibody Screen NEGATIVE Vital Signs Vital Signs: Last Vital Signs Temp 98.1 F 06/23/25 06:07 Pulse 83 06/23/25 12:45 Resp 16 06/23/25 06:07 BP 98/61 06/23/25 12:45 Pulse Ox 100 06/23/25 12:46 Weight: 85.593 kg Height: 162.56 cm Anesthesia Procedures Epidural Insertion Patient Location: OB Start Time: 12:00 Stop Time: 12:50 Start Date: 06/23/25 Stop Date: 06/23/25 Reason for Block: procedure for pain Patient Position: sitting Performed By: Moy Johnson Preanesthetic Checklist: IV checked, risks and benefits discussed, surgical consent, monitors and equipment checked, pre-op evaluation, timeout performed and anesthesia consent Prep: chlorhexidine gluconate Monitoring: blood pressure monitoring, continuous pulse oximetry and heart rate Approach: midline Vertebral Space: lumbar (1-5) Epidural Technique: TRACY saline Needle Type: Tuohy needle Injection Technique: continuous catheter Needle gauge: 17 Needle Length (cm): 10 cm Needle Insertion Depth (cm): 6 Catheter Gauge: 19 Catheter Type: multi-orifice Catheter at skin depth (cm): 12 Test Dose Result: negative and lidocaine 1.5% with epinephrine 1 to 200,000
[2025-06-23] MEDS: PHENYLEPHRINE 100 MCG/ML SYRINGE IVP ×4 (13:09→13:57)
[2025-06-23] MEDS: OXYTOCIN 30 unit/500 ML in NS 30 UNIT/500 ML BAG IVPB (14:00)
--- NOTE | 2025-06-23 17:01 | W.PM.VAGD1_ITS ---
Procedure Procedure Done: Global Procedure Details: Normal spontaneous vaginal delivery 2nd degree laceration repair Events: GDMA1 Intrapartal Events: Labor Induction Delivery augmentation: rupture of membranes and pitocin Delivery monitor: external FHT Route of delivery: Laceration description: Perineal - 2nd Degree Delivery repair: Vicryl Estimated blood loss (mL): 125 Anesthesia type: Epidural Disposition: floor Complications: None Narrative: Peggy is a 29 yo at 39w0d GA admitted for induction of labor in the setting of GDM A1. is complicated by history of gestational hypertension and CMV exposure. heart tones on admission were category 1. Her labor was induced with vaginal Cytotec and epidural was utilized for pain ma nagement. Status of bag of call: AROM performed intrapartum, clear fluid. heart tones during active labor were category 1. She was complete at 1538 and started pushing at 1555. She made excellent descent throughout the second stage of labor, and had a normal spontaneous vaginal delivery at 1602. heart tones during second stage of labor were category 2 for recurrent variable decelerations, with rapid return to normal baseline. Baby delivered OA, restituted [place] and the anterior and posterior shoulders delivered without difficulty. Nuchal cord: present x1, loose and reduced prior to delivery. The cord was clamped and cut after delayed cord clamping. Active management of the third stage occurred with IV pitocin and gentle cord traction and the placenta delivered spontaneous and intact at 1605. Cord gases sent: no Cord blood sent for infant ABO: no details: - Liveborn female fetus at 1602 - weight 3320g - APGARs were 9 and 9 at 1 and 5 minutes respectively Perineum and vagina were inspected, and the following lacerations were noted: Second-degree. Repair was completed in the usual fashion with 3-0 Vicryl under existing epidural analgesia. Excellent hemostasis was noted. The following counts were correct: sponges, needles, instruments. Mother and infant in stable condition following the . [place] Infant Gender: Female presentation: vertex Placental Delivery Description: Spontaneous
[2025-06-23] MEDS: IBUPROFEN 600 MG TABLET PO (19:13)
[2025-06-23] MEDS: ACETAMINOPHEN 500 MG TABLET 1000 MG PO (22:50)
[2025-06-24] MEDS: IBUPROFEN 600 MG TABLET PO ×2 (04:13→11:30)
[2025-06-24 04:21] VITALS: BP 102/71; PULSE 72; RESP 16; TEMP 36.6; O2SAT 98
[2025-06-24 07:30] LABS: Hemoglobin* 10.4 gm/dL (12.0-16.0)
--- NOTE | 2025-06-24 07:56 | P.DS_ITS ---
DS: Providers Provider Time Seen by Provider: 08:00 Date Seen: 06/24/25 Date of admission: 06/22/25 16:28 Primary care physician: Not a Local Provider Admitting Clinician: Rose Goldstein MD Attending Physician on discharge: Aleksey LIANG Date of Discharge: 06/24/25 DS: Diagnosis Discharge Diagnosis (1) normal course: Status: Acute (2) Gestational diabetes: Status: Acute Exam Narrative: Exam Narrative: GENERAL APPEARANCE:? normal affect, alert, no distress MOOD:? appropriate CHEST:? clear to auscultation HEART:? regular rate and rhythm ABDOMEN:? soft, non-tender the uterine fundus is 1 cm above Umbilicus and firm, Midline and is appropriate for the stage of recovery. PERINEUM:? Perineal Laceration: no swelling or bruising, repair well approximated EXTREMITIES:? normal and no edema Const: Vital Signs, click to edit/add: Vital Signs - 24 hr 06/23/25 10:46 06/23/25 10:47 06/23/25 10:49 Temperature Pulse Rate 68 76 72 Pulse Rate [Pulse Oximeter] Respiratory Rate Blood Pressure 86/55 L 82/53 L 99/64 Blood Pressure [Le ft Arm] Pulse Oximetry 98 Oxygen Delivery Me od 06/23/25 12:07 06/23/25 12:18 06/23/25 12:20 Temperature Pulse Rate 70 Pulse Rate [Pulse Oximeter] Respiratory Rate Blood Pressure 103/64 Blood Pressure [Le ft Arm] Pulse Oximetry 97 91 Oxygen Delivery Me od 06/23/25 12:23 06/23/25 12:28 06/23/25 12:31 Temperature Pulse Rate 72 Pulse Rate [Pulse Oximeter] Respiratory Rate Blood Pressure 107/74 Blood Pressure [Le ft Arm] [facility] 12[facility]35 06/23/25 12:36 06/23/25 12:37 Temperature Pulse Rate 63 62 Pulse Rate [Pulse Oximeter] Respiratory Rate Blood Pressure 103/69 106/72 Blood Pressure [Le ft Arm] Pulse Oximetry 100 Oxygen Delivery Me od 06/23/25 12:39 06/23/25 12:41 06/23/25 12:43 Temperature Pulse Rate 75 69 79 Pulse Rate [Pulse Oximeter] Respiratory Rate Blood Pressure 98/61 103/66 102/63 Blood Pressure [Le ft Arm] Pulse Oximetry 100 Oxygen Delivery Me thod 06/23/25 12:45 06/23/25 12:46 06/23/25 12:47 Temperature Pulse Rate 83 87 Pulse Rate [Pulse Oximeter] Respiratory Rate Blood Pressure 98/61 93/61 Blood Pressure [Le ft Arm] Pulse Oximetry 100 Oxygen Delivery Me thod 06/23/25 12:49 06/23/25 12:51 06/23/25 12:53 Temperature Pulse Rate 72 66 66 Pulse Rate [Pulse Oximeter] Respiratory Rate Blood Pressure 95/57 L 94/56 L 95/57 L Blood Pressure [Le ft Arm] Pulse Oximetry 100 Oxygen Delivery Me thod 06/23/25 12:55 06/23/25 12:56 06/23/25 12:57 Temperature Pulse Rate 82 63 Pulse Rate [Pulse Oximeter] Respiratory Rate Blood Pressure 93/58 L 91/54 L Blood Pressure [Le ft Arm] Pulse Oximetry 100 Oxygen Delivery Pa thod 06/23/25 12:59 06/23/25 13:01 06/23/25 13:03 Temperature Pulse Rate 88 71 88 Pulse Rate [Pulse Oximeter] Respiratory Rate Blood Pressure 92/62 92/56 L 90/58 L Blood Pressure [Le ft Arm] Pulse Oximetry 100 Oxygen Delivery Pa thod 06/23/25 13:06 06/23/25 13:09 06/23/25 13:11 Temperature Pulse Rate 72 60 Pulse Rate [Pulse Oximeter] Respiratory Rate Blood Pressure 88/55 L 89/52 L Blood Pressure [Le ft Arm] Pulse Oximetry 99 98 Oxygen Delivery Pa thod 06/23/25 13:13 06/23/25 13:13 06/23/25 13:15 Temperature 97.6 F Pulse Rate 62 73 Pulse Rate [Pulse Oximeter] Respiratory Rate 18 Blood Pressure 95/58 L 95/59 L Blood Pressure [Le ft Arm] Pulse Oximetry Oxygen Delivery Me thod 06/23/25 13:16 06/23/25 13:17 06/23/25 13:19 Temperature Pulse Rate 71 71 Pulse Rate [Pulse Oximeter] Respiratory Rate Blood Pressure 94/57 L 91/53 L Blood Pressure [Le ft Arm] Pulse Oximetry 98 Oxygen Delivery Me thod 06/23/25 13:21 06/23/25 13:23 06/23/25 13:25 Temperature Pulse Rate 67 73 76 Pulse Rate [Pulse Oximeter] Respiratory Rate Blood Pressure 84/51 L 93/54 L 100/58 L Blood Pressure [Le ft Arm] Pulse Oximetry 97 Oxygen Delivery Me thod 06/23/25 13:26 06/23/25 13:27 06/23/25 13:30 Temperature Pulse Rate 63 72 Pulse Rate [Pulse Oximeter] Respiratory Rate Blood Pressure 96/55 L 106/61 Blood Pressure [Le ft Arm] Pulse Oximetry 97 Oxygen Delivery Pa thod 06/23/25 13:31 06/23/25 13:33 06/23/25 13:35 Temperature Pulse Rate 69 76 78 Pulse Rate [Pulse Oximeter] Respiratory Rate Blood Pressure 99/59 L 104/67 102/65 Blood Pressure [Le ft Arm] Pulse Oximetry 96 Oxygen Delivery Me thod 06/23/25 13:36 06/23/25 13:37 06/23/25 13:39 Temperature Pulse Rate 79 89 Pulse Rate [Pulse Oximeter] Respiratory Rate Blood Pressure 99/64 100/66 Blood Pressure [Le ft Arm] Pulse Oximetry 96 Oxygen Delivery Pa thod 06/23/25 13:42 06/23/25 13:44 06/23/25 13:45 Temperature Pulse Rate 73 70 Pulse Rate [Pulse Oximeter] Respiratory Rate Blood Pressure 94/60 85/53 L Blood Pressure [Le ft Arm] Pulse Oximetry 97 Oxygen Delivery Pa thod 06/23/25 13:47 06/23/25 13:49 06/23/25 13:52 Temperature Pulse Rate 61 75 68 Pulse Rate [Pulse Oximeter] Respiratory Rate Blood Pressure 92/53 L 86/53 L 94/60 Blood Pressure [Le ft Arm] Pulse Oximetry 97 98 Oxygen Delivery Pa thod 06/23/25 13:53 06/23/25 13:55 06/23/25 13:57 Temperature Pulse Rate 72 73 53 L Pulse Rate [Pulse Oximeter] Respiratory Rate Blood Pressure 88/58 L 86/50 L 93/55 L Blood Pressure [Le ft Arm] Pulse Oximetry 97 Oxygen Delivery Pa thod 06/23/25 13:59 06/23/25 14:01 06/23/25 14:02 Temperature Pulse Rate 55 L 57 L Pulse Rate [Pulse Oximeter] Respiratory Rate Blood Pressure 101/63 93/52 L Blood Pressure [Le ft Arm] Pulse Oximetry 97 Oxygen Delivery Pa thod 06/23/25 14:03 06/23/25 14:05 06/23/25 14:07 Temperature Pulse Rate 67 69 67 Pulse Rate [Pulse Oximeter] Respiratory Rate Blood Pressure 92/53 L 87/51 L 84/51 L Blood Pressure [Le ft Arm] Pulse Oximetry 97 Oxygen Delivery Me thod 06/23/25 14:09 06/23/25 14:12 06/23/25 14:13 Temperature Pulse Rate 68 57 L 77 Pulse Rate [Pulse Oximeter] Respiratory Rate Blood Pressure 85/55 L 100/56 L 91/56 L Blood Pressure [Le ft Arm] Pulse Oximetry 97 Oxygen Delivery Me thod 06/23/25 14:15 06/23/25 14:17 06/23/25 14:22 Temperature Pulse Rate 62 Pulse Rate [Pulse Oximeter] Respiratory Rate Blood Pressure 90/53 L Blood Pressure [Le ft Arm] Pulse Oximetry 99 97 Oxygen Delivery Me thod 06/23/25 14:23 06/23/25 14:25 06/23/25 14:27 Temperature Pulse Rate 71 60 68 Pulse Rate [Pulse Oximeter] Respiratory Rate Blood Pressure 99/55 L 98/51 L 96/51 L Blood Pressure [Le ft Arm] Pulse Oximetry 97 Oxygen Delivery Me thod 06/23/25 14:29 06/23/25 14:31 06/23/25 14:32 Temperature Pulse Rate 62 63 Pulse Rate [Pulse Oximeter] Respiratory Rate Blood Pressure 93/51 L 99/58 L Blood Pressure [Le ft Arm] Pulse Oximetry 97 Oxygen Delivery Me thod 06/23/25 14:33 06/23/25 14:35 06/23/25 14:37 Temperature Pulse Rate 60 56 L 58 L Pulse Rate [Pulse Oximeter] Respiratory Rate Blood Pressure 96/54 L 99/57 L 94/54 L Blood Pressure [Le ft Arm] Pulse Oximetry 97 Oxygen Delivery Me thod 06/23/25 14:39 06/23/25 14:41 06/23/25 14:42 Temperature Pulse Rate 62 60 Pulse Rate [Pulse Oximeter] Respiratory Rate Blood Pressure 95/55 L 99/58 L Blood Pressure [Le ft Arm] Pulse Oximetry 96 Oxygen Delivery Me thod 06/23/25 14:43 06/23/25 14:45 06/23/25 14:47 Temperature Pulse Rate 62 58 L 61 Pulse Rate [Pulse Oximeter] Respiratory Rate Blood Pressure 91/54 L 93/51 L 92/52 L Blood Pressure [Le ft Arm] Pulse Oximetry 96 Oxygen Delivery Me thod 06/23/25 14:49 06/23/25 14:51 06/23/25 14:52 Temperature Pulse Rate 59 L 69 Pulse Rate [Pulse Oximeter] Respiratory Rate Blood Pressure 97/54 L 94/57 L Blood Pressure [Le ft Arm] Pulse Oximetry 97 Oxygen Delivery Pa thod 06/23/25 14:53 06/23/25 14:55 06/23/25 14:57 Temperature Pulse Rate 66 71 67 Pulse Rate [Pulse Oximeter] Respiratory Rate Blood Pressure 94/53 L 95/60 99/58 L Blood Pressure [Le ft Arm] Pulse Oximetry 96 Oxygen Delivery Pa thod 06/23/25 14:59 06/23/25 15:01 06/23/25 15:02 Temperature Pulse Rate 73 77 Pulse Rate [Pulse Oximeter] Respiratory Rate Blood Pressure 99/58 L 103/67 Blood Pressure [Le ft Arm] Pulse [facility]ximetry [facility] 15:03 06/23/25 15:05 06/23/25 15:07 Temperature Pulse Rate 79 71 62 Pulse Rate [Pulse Oximeter] Respiratory Rate Blood Pressure 101/60 103/66 106/56 L Blood Pressure [Le ft Arm] Pulse Oximetry 97 [facility] 15:09 06/23/25 15:12 06/23/25 15:14 Temperature Pulse Rate 71 86 Pulse Rate [Pulse Oximeter] Respiratory Rate Blood Pressure 106/56 L 119/60 Blood Pressure [Le ft Arm] Pulse Oximetry 97 Oxygen Delivery Pa thod 06/23/25 15:16 06/23/25 15:17 06/23/25 15:19 Temperature Pulse Rate 111 H 107 H 85 Pulse Rate [Pulse Oximeter] Respiratory Rate Blood Pressure 139/70 125/64 127/73 Blood Pressure [Le ft Arm] Pulse Oximetry 97 Oxygen Delivery Pa thod 06/23/25 15:21 06/23/25 15:22 06/23/25 15:23 Temperature Pulse Rate 91 101 H Pulse Rate [Pulse Oximeter] Respiratory Rate Blood Pressure 120/79 111/69 Blood Pressure [Le ft Arm] Pulse Oximetry [facility] 15:25 06/23/25 15:27 06/23/25 15:29 Temperature Pulse Rate 96 114 H 95 Pulse Rate [Pulse Oximeter] Respiratory Rate Blood Pressure 99/59 L 98/60 100/63 Blood Pressure [Le ft Arm] Pulse Oximetry 97 Oxygen Delivery Me thod 06/23/25 15:31 06/23/25 15:32 06/23/25 15:32 Temperature Pulse Rate 90 Pulse Rate [Pulse Oximeter] Respiratory Rate Blood Pressure 103/68 Blood Pressure [Le ft Arm] Pulse Oximetry 97 97 Oxygen Delivery Me thod 06/23/25 15:33 06/23/25 15:37 06/23/25 15:39 Temperature Pulse Rate 86 76 Pulse Rate [Pulse Oximeter] Respiratory Rate Blood Pressure 112/76 108/72 Blood Pressure [Le ft Arm] Pulse Oximetry 98 Oxygen Delivery Me thod 06/23/25 15:42 06/23/25 15:45 06/23/25 15:47 Temperature Pulse Rate 98 Pulse Rate [Pulse Oximeter] Respiratory Rate Blood Pressure 113/73 Blood Pressure [Le ft Arm] Pulse Oximetry 98 97 Oxygen Delivery Me thod 06/23/25 15:50 06/23/25 15:52 06/23/25 15:54 Temperature Pulse Rate 78 98 Pulse Rate [Pulse Oximeter] Respiratory Rate Blood Pressure 118/82 122/88 Blood Pressure [Le ft Arm] Pulse Oximetry 97 Oxygen Delivery Me thod 06/23/25 15:57 06/23/25 16:00 06/23/25 16:06 Temperature Pulse Rate 107 H 88 Pulse Rate [Pulse Oximeter] Respiratory Rate Blood Pressure 147/95 H 128/59 L Blood Pressure [Le ft Arm] Pulse Oximetry 98 Oxygen Delivery Me thod 06/23/25 16:06 06/23/25 16:09 06/23/25 16:14 Temperature 98.4 F Pulse Rate Pulse Rate [Pulse Oximeter] Respiratory Rate 18 Blood Pressure Blood Pressure [Le ft Arm] Pulse Oximetry 98 98 Oxygen Delivery Me thod 06/23/25 16:19 06/23/25 16:21 06/23/25 16:21 Temperature Pulse Rate 78 Pulse Rate [Pulse Oximeter] Respiratory Rate 18 Blood Pressure 125/61 Blood Pressure [Le ft Arm] Pulse Oximetry 98 Oxygen Delivery Me thod 06/23/25 16:24 06/23/25 16:29 06/23/25 16:34 Temperature Pulse Rate Pulse Rate [Pulse Oximeter] Respiratory Rate Blood Pressure Blood Pressure [Le ft Arm] Pulse Oximetry 97 97 98 Oxygen Delivery Me thod 06/23/25 16:36 06/23/25 16:36 06/23/25 16:39 Temperature Pulse Rate 80 Pulse Rate [Pulse Oximeter] Respiratory Rate 18 Blood Pressure 140/61 H Blood Pressure [Le ft Arm] Pulse Oximetry 97 Oxygen Delivery Me thod 06/23/25 16:44 06/23/25 16:49 06/23/25 16:54 Temperature Pulse Rate Pulse Rate [Pulse Oximeter] Respiratory Rate Blood Pressure Blood Pressure [Le ft Arm] Pulse Oximetry 97 98 98 Oxygen Delivery Me thod 06/23/25 16:59 06/23/25 17:04 06/23/25 17:06 Temperature Pulse Rate Pulse Rate [Pulse Oximeter] Respiratory Rate 18 Blood Pressure Blood Pressure [Le ft Arm] Pulse Oximetry 96 97 Oxygen Delivery Me thod 06/23/25 17:07 06/23/25 17:09 06/23/25 17:14 Temperature Pulse Rate 78 Pulse Rate [Pulse Oximeter] Respiratory Rate Blood Pressure 105/60 Blood Pressure [Le ft Arm] Pulse Oximetry 96 97 Oxygen Delivery Me thod 06/23/25 17:19 06/23/25 17:21 06/23/25 17:21 Temperature Pulse Rate 83 Pulse Rate [Pulse Oximeter] Respiratory Rate 18 Blood Pressure 103/63 Blood Pressure [Le ft Arm] Pulse Oximetry 96 Oxygen Delivery Me thod 06/23/25 17:24 06/23/25 17:29 06/23/25 17:34 Temperature Pulse Rate Pulse Rate [Pulse Oximeter] Respiratory Rate Blood Pressure Blood Pressure [Le ft Arm] Pulse Oximetry 97 97 97 Oxygen Delivery Me thod 06/23/25 17:36 06/23/25 17:36 06/23/25 17:39 Temperature Pulse Rate 82 Pulse Rate [Pulse Oximeter] Respiratory Rate 18 Blood Pressure 97/62 Blood Pressure [Le ft Arm] Pulse Oximetry 97 Oxygen Delivery Me thod 06/23/25 17:40 06/23/25 17:44 06/23/25 17:49 Temperature Pulse Rate Pulse Rate [Pulse Oximeter] Respiratory Rate Blood Pressure Blood Pressure [Le ft Arm] Pulse Oximetry 94 94 96 Oxygen Delivery Me thod 06/23/25 17:50 06/23/25 17:51 06/23/25 17:54 Temperature Pulse Rate 90 Pulse Rate [Pulse Oximeter] Respiratory Rate 18 Blood Pressure 103/65 Blood Pressure [Le ft Arm] Pulse Oximetry 96 Oxygen Delivery Me thod 06/23/25 17:59 06/23/25 18:04 06/23/25 18:05 Temperature Pulse Rate Pulse Rate [Pulse Oximeter] Respiratory Rate 18 Blood Pressure Blood Pressure [Le ft Arm] Pulse Oximetry 98 98 Oxygen Delivery Me thod 06/23/25 18:06 06/23/25 18:08 06/23/25 18:09 Temperature Pulse Rate 103 H Pulse Rate [Pulse Oximeter] Respiratory Rate Blood Pressure 104/65 Blood Pressure [Le ft Arm] Pulse Oximetry 94 96 Oxygen Delivery Me thod 06/23/25 18:14 06/23/25 18:18 06/23/25 18:19 Temperature Pulse Rate Pulse Rate [Pulse Oximeter] Respiratory Rate Blood Pressure Blood Pressure [Le ft Arm] Pulse Oximetry 95 94 94 Oxygen Delivery Me thod 06/23/25 18:20 06/23/25 18:21 06/23/25 20:14 Temperature 98.4 F 98.4 F Pulse Rate 105 H Pulse Rate [Pulse Oximeter] 78 Respiratory Rate 18 16 Blood Pressure 98/59 L Blood Pressure [Le ft Arm] 114/73 Pulse Oximetry 97 Oxygen Delivery Me thod Room Air 06/23/25 22:53 06/24/25 04:21 Temperature 98.1 F 97.9 F Pulse Rate Pulse Rate [Pulse Oximeter] 78 72 Respiratory Rate 16 16 Blood Pressure Blood Pressure [Le ft Arm] 99/64 102/71 Pulse Oximetry 98 98 Oxygen Delivery Me thod Room Air Room Air OB - DS: Summary Hospital Course Hospital Course: Peggy is a 29 y.o. G 2 P 2 who was admitted to [facility] for induction of labor for gestational diabetes A1.? She had a NVD that was uncomplicated. The patient feels well.? The pain is well controlled with current medications. She plans to feed her baby breastmilk and is pumping and using enfamil formula until greater volume of milk present. Breasts feel fine and no questions on pump. Educated on services if needed. the patient has done well.? Vitals have been stable.? She has remained afebrile.? Has a good appetite, is tolerating a general diet.? She is voiding without difficulty.? She is passing gas and has not had a bowel movement.?Using stool softener. She is ambulating and denies any dizziness.? Has small amount of rubra lochia. She is planning eventual vasectomy for prevention.?She desires to go home this evening assuming baby's 24 hour testing is normal. ?? Problems: none? ?? plan:? Discharge home with baby.? Encouraged condoms once do resume intercourse to prevent and allow body time to heal. Discussed glucose tolerance test at 6 week visit. To fast for 2 hour glucose test at 6 week PP visit. Prescriptions for acetaminophen, ibuprofen, and colace sent to her pharmacy. Follow up in 2 weeks and 6 weeks.? , may see if needed? Hgb 10.4. Call for signs/symptoms of preeclampsia? Documentation by SPolt Aleksey VILLEDA APRN, CNM, was present for visit and have reviewed and agree with documentation by the Certified Nurse Midwifery Student.? Peripartum Data Infant delivery method: Vaginal Laceration description: Perineal - 2nd Degree Episiotomy description: None complications: none Gender: Female Infant Discharge Plan: Home Status at Discharge Overall status at discharge: patient is progressing back to baseline Time Spent with Patient Time attestation: Total time spent providing and/or coordinating discharge services: Time spent: Less than 30 minutes Discharge Plan Discharge Disposition: Home, Self-Care Date of Admission: 06/22/25 16:28 Attending Provider on Discharge: Christy Lang Consulting Providers: Florina Yaeñz Primary Care Provider: Provider,Not a Local Condition: Stable Anticipated Discharge Date/Time: 06/24/25 18:00 Discharge Medications: New acetaminophen 500 mg Tablet 1,000 mg PO Q6H PRNQty: 60 0RF docusate sodium 100 mg Capsule 100 mg PO DAILY Qty: 60 0RF ibuprofen 600 mg Tablet 600 mg PO Q6H PRNQty: 60 0RF Continued [id number] 3 fatty no.1 27-1-300 mg capsule PO Discontinued aspirin 81 mg tablet,delayed release (DR/EC) 81 mg PO QDAY (DME) blood-glucose meter Misc See Rx Instructions .Route Qty: 1 0RF Rx Instructions: As directed (DME) lancets [Accu-Chek Softclix Lancets] Misc See Rx Instructions .Route Qty: 100 2RF Rx Instructions: As directed to monitor blood glucose four times daily (DME) Blood Glucose Test Strip See Rx Instructions .Route Qty: 100 2RF Rx Instructions: As directed to monitor blood glucose values four times daily Discharge Orders: Discharge Order (Routine); Ordered 06/24/25 Ordered By: Christy Lang Patient Education: OB Over the Counter Medication Information, OB Vaginal/Breast Feeding Additional Instructions: Discharge instructions were reviewed with the patient including signs and symptoms of infection and home going medications Nothing vaginally for 6 weeks: no tampons or intercourse Do not drive while taking narcotic pain medication(s) Off Work or School for 6 weeks Symptoms to report to doctor: * Bleeding that saturates more than one pad per hour * Passing clots larger than the size of a golf ball * Pain not relieved by prescribed medication * Fever above 100.4 degrees Fahrenheit * A foul vaginal odor * Difficulty in emotions, mood, and functions * Thoughts of hurting yourself and/or * Painful, reddened area in your breast * Any drainage, redness, or tenderness in your IV/epidural site * Severe headache that doesn't improve after taking medications * Changes in vision, including temporary loss of vision, blurred vision, and/or light sensitivity * Upper abdominal pain (usually under ribs on the right side) * Decrease in urination or painful, frequent urinating * Chest pain * Shortness of breath * Tenderness or pain with redness and/swelling in the calf(s) of your leg 2-week visit: discuss infant feeding concerns, review control options and screen for anxiety/depression. 6-week visit for an annual exam. consultation services are available to all mothers and babies for the first year after delivery.? To make an appointment, please call [phone]. Activity Level: Activity as Tolerated and No strenuous activity Discharge Diet: Regular Follow Up Appointments: Provider,Not a Local [Primary Care Provider, Family Practice] Forms: Patient Belongings, MyHealth Info Instructions
[2025-06-24] MEDS: DOCUSATE SODIUM 100 MG CAPSULE PO (08:35)
[2025-06-24 08:37] VITALS: BP 98/68; PULSE 78; RESP 16; TEMP 36.3; O2SAT 97
--- NOTE | 2025-06-24 10:48 | PM.ANPOST ---
Post Anesthesia Note Post Anesthesia Note Patient seen: Inpatient Respiratory Status: adequate Cardiovascular Status: adequate Mental Status: baseline Pain: adequate Temp: baseline Anesthetic awareness: N/A Complications: none Follow care: none
[2025-06-24 11:11] VITALS: BP 95/64; PULSE 82; RESP 16; TEMP 36.8; O2SAT 97
[2025-06-24 15:00] VITALS: BP 108/74; PULSE 76; RESP 16; TEMP 36.7; O2SAT 98
== END 2025-06-24 18:16 | disposition home or self-care (01) | DRG 807 ==
PROVIDERS: Obstetrics & Gynecology; Admitting Provider Obstetrics & Gynecology; Visit Provider Obstetrics & Gynecology
DX: O24.420 Gestational diabetes mellitus in childbirth, diet controlled (principal); O70.1 Second degree perineal laceration during delivery; Z37.0 Single live birth; Z3A.38 38 weeks gestation of pregnancy
CPT/HCPCS: 01967; 36415; 59200; 85018; 85025; 86592; 86850; 86900; 86901; 88307; 94761; A9270; J0665; J2270; J2795; J7120

== ENCOUNTER 2025-08-08 07:55 | Outpatient (CLI) | payer OTHER, SELFPAY | END 2025-08-08 07:56 | disposition home or self-care (01) | LOC: NFLDREF 08-11 11:45 | PROVIDERS: Visit Provider Physician Assistant | DX: O24.419 Gestational diabetes mellitus in pregnancy, unspecified control (principal) | CPT/HCPCS: 82947; 82950 ==